=== PATIENT | female | born 1975 | race Caucasian/White ===

== ENCOUNTER 2020-11-14 09:54 | Outpatient (REF) | payer OTHER, SELFPAY | END 2020-11-14 09:55 | disposition home or self-care (01) | LOC: HO.LAB 09:54 | PROVIDERS: Visit Provider Internal Medicine | DX: Z20.828 Contact with and (suspected) exposure to other viral communicable diseases (principal) | CPT/HCPCS: C9803; U0003 ==

== ENCOUNTER 2021-07-22 08:15 | Outpatient (REF) | payer OTHER, SELFPAY | END 2021-07-22 08:16 | disposition home or self-care (01) | LOC: HO.HMGCLDS 08:15 | PROVIDERS: PCP Physician Assistant Medical; Visit Provider Internal Medicine | DX: Z20.822 Contact with and (suspected) exposure to COVID-19 (principal) | CPT/HCPCS: C9803; U0003; U0005 ==

== ENCOUNTER 2021-12-10 20:14 | Emergency (ER) | payer OTHER, SELFPAY ==
[2021-12-10 21:51] VITALS: BP 142/97; PULSE 107; RESP 20; TEMP 36.9; O2SAT 98; BMI 32.9
[2021-12-10 22:10] LABS: MANUAL DIFF FLAG NO
[2021-12-10 22:12] LABS: Basophils Absolute Auto 0.1 X10*3/uL (0.0-0.2); Basophils Percent Auto 0.5 % (0-2); Eosinophils Absolute Auto 0.4 X10*3/uL (0.0-0.4); Hemoglobin 14.4 g/dl (12.0-16.0); Imm Gran Abs Auto 0.03 X10*3/uL (0.00-0.03); Imm Gran Pct Auto 0.3 % (0.0-0.4); Lymphocytes Absolute Auto 3.1 X10*3/uL (1.2-4.9); Mean Corpuscular HGB Conc 34.3 g/dl (31.0-35.0); Mean Corpuscular Hemoglobin 30.8 pg (27.0-33.0); Mean Corpuscular Volume 89.9 fL (80.0-98.0); Mean Platelet Volume 10.9 fL (9.4-12.3); Monocytes Absolute Auto 0.8 X10*3/uL (0.1-1.2); Monocytes Percent Auto 8.5 % (2-11); Neutrophils Percent Auto 53.7 % (45-73); Platelet Count 245 X10*3/uL (160-400); Red Blood Count 4.67 X10*6/uL (4.20-5.50); Red Cell Distribution Width 12.1 % (11.0-16.0); White Blood Count 9.2 X10*3/uL (4.8-10.8)
[2021-12-10 22:26] LABS: COVID-19 Test Negative (Negative)
[2021-12-10 22:46] LABS: Alanine Aminotransferase 18 U/L (0-31); Albumin Level 3.8 g/dL (3.5-5.0); Alkaline Phosphatase 70 U/L (39-117); Anion Gap 9 (12-20); Aspartate Amino Transferase 15 U/L (5-31); Bilirubin Total 0.5 mg/dL (0.0-1.0); Blood Urea Nitrogen 11 mg/dL (9-16); Calcium 8.9 mg/dL (8.4-10.2); Carbon Dioxide 25 mmol/L (22-29); Chloride 110 mmol/L (96-108); Creatinine Clr Calc Pharmacy 121.1; Estimated Glomerular Filt Rate > 60; Glucose Random 104 mg/dL (60-115); Potassium 4.2 mmol/L (3.3-5.1); Sodium 140 mmol/L (135-145); Total Protein 7.1 g/dL (6.5-8.0)
[2021-12-11 05:06] VITALS: BP 125/88; PULSE 55; RESP 16; TEMP 36.7; O2SAT 97
--- NOTE | 2021-12-11 05:09 | ED_ITS ---
HPI - General Adult General Chief complaint: General Medical Stated complaint: vomiting,dehydration Time Seen by Provider: 12/11/21 05:09 Source: patient Mode of arrival: ambulatory Limitations: no limitations History of Present Illness HPI narrative: vomiting for the past 48 hours, mild fever 2 days ago Onset (ago): day(s) Radiation: non-radiation Severity: moderate Pain Consistency: intermittent Associated symptoms: fever/chills Related Data Previous Rx's Medication Instructions Recorded ondansetron 4 mg disintegrating 4 mg PO Q8H 4 Days #12 tab 12/11/21 tablet Allergies Allergy/AdvReac Type Severity Reaction Status Date / Time No Known Allergies Allergy Unverified 08/14/20 19:24 [No Known Allergies*] NKDA Allergy Unknown Uncoded 06/28/19 00:00 Review of Systems Constitutional: Constitutional: Reports no additional constitutional complaints Eyes: Eyes: Reports no additional eye complaints ENT: Denies dizziness Cardiovascular: Cardiovascular: Reports no additional cardiovascular complaints Respiratory: Respiratory: Reports as per HPI Gastrointestinal: Gastrointestinal: Reports no additional gastrointestinal complaints Genitourinary: Genitourinary: Reports no additional female genitourinary complaints Musculoskeletal: Musculoskeletal: Reports no additional musculoskeletal complaints Integumentary/Breasts: Skin/Breast: Denies rash Neurologic: Reports system reviewed and no additional complaints, except as documented, Denies dizziness and Denies Sensory deficit (Neuro) Psychiatric: Psychiatric: Denies anxiety [facility] Social History Social History Advance Directives: No Physical Exam Vital Signs: Vital Signs: Last Vital Signs Temp 98.1 F 12/11/21 05:06 Pulse 55 12/11/21 05:06 Resp 16 12/11/21 05:06 BP 125/88 12/11/21 05:06 Pulse Ox 97 12/11/21 05:06 BMI result Body Mass Index 32.9 Const: General: healthy appearing Nutritional Appearance: average body hab itus Orientation/consciousness: oriented to person and patient oriented x3 Limitations: no limitations HENMT: Head: Yes normal to inspection Ears: external ears normal General nose exam: Normal external nose present Mouth: Normal oral and palatal mucosa present and oropharynx normal Throat: Yes posterior oropharynx normal Eyes: General: appearance normal, both eyes and all related structures Neck: Other: supple Neck: Yes normal visual inspection Chest: Chest palpation & inspection: normal inspection of the chest Resp: Auscultation: clear to auscultation bilaterally Cardio: Jugular venous distension: no JVD Rate: regular rate Rhythm: regular rhythm Heart sounds: S1 normal heart sound present and S2 normal heart sound present GI: Inspection: Yes normal to inspection Palpation (GI): Soft to palpation, nontender and No hepatosplenomegaly present Auscultation: normal bowel sounds : General: Yes no CVA tenderness Back/Spine/Pelvis: Back: no CVA tenderness Skin: General skin exam: no rashes or lesions noted Neuro: General: oriented to person and patient oriented x3 Cranial nerves: Yes CN's II-XII intact bilaterally Motor exam (neuro): 5/5 motor strength present throughout Sensory Exam: No Sensory deficit (Neuro) Extrem: General: Yes normal to inspection Psych: Appearance: grossly normal Course Reevaluation(s) Reevaluation #1: patient tolerating PO will dc on zofran Time: 07:45 Medical Decision Making Lab Data Result diagrams: 12/10/21 22:06 12/10/21 22:06 Labs: Lab Results 12/10/21 12/10/21 12/10/21 Range/Units 22:06 22:06 22:06 WBC 9.2 (4.8-10.8) X10*3/uL RBC 4.67 (4.20-5.50) X10*6/uL Hgb 14.4 (12.0-16.0) g/dl Hct 42.0 (37.0-47.0) % MCV 89.9 (80.0-98.0) fL MCH 30.8 (27.0-33.0) pg MCHC 34.3 (31.0-35.0) g/dl RDW 12.1 (11.0-16.0) % Plt Count 245 (160-400) X10*3/uL MPV 10.9 (9.4-12.3) fL Immature Gran % (Auto) 0.3 (0.0-0.4) % Neut % (Auto) 53.7 (45-73) % Lymph % (Auto) 33.0 (20-40) % [place] % (Auto) 8.5 (2-11) % Eos % (Auto) 4.0 (0-4) % Baso % (Auto) 0.5 (0-2) % Lymph # (Auto) 3.1 (1.2-4.9) X10*3/uL [place] # (Auto) 0.8 (0.1-1.2) X10*3/uL Eos # (Auto) 0.4 (0.0-0.4) X10*3/uL Baso # (Auto) 0.1 (0.0-0.2) X10*3/uL Abs Immat Gran (auto) 0.03 (0.00-0.03) X10*3/uL Absolute Neuts (auto) 5.0 (2.0-8.3) x10*3/uL Absolute Nucleated RBC 0.000 (0.0-0.012) X10*3/uL Nucleated RBC % (auto) 0.0 (0.0-0.2) /100WBC Sodium 140 (135-145) mmol/L Potassium 4.2 (3.3-5.1) mmol/L Chloride 110 H (96-108) mmol/L Carbon Dioxide 25 (22-29) mmol/L Anion Gap 9 L (12-20) BUN 11 (9-16) mg/dL Creatinine 0.75 (0.5-1.4) mg/dL Estim Creat Clear Calc 121.1 Estimated GFR > 60 Random Glucose 104 (60-115) mg/dL Calcium 8.9 (8.4-10.2) mg/dL Total Bilirubin 0.5 (0.0-1.0) mg/dL AST 15 (5-31) U/L ALT 18 (0-31) U/L Alkaline Phosphatase 70 (39-117) U/L Total Protein 7.1 (6.5-8.0) g/dL Albumin 3.8 (3.5-5.0) g/dL Urine Color Urine Appearance Urine pH (5.0-8.0) Ur Specific [place] (1.005-1.025) Urine Protein (NEG-TRACE) MG/DL Urine Glucose (UA) (NEG) MG/DL Urine Ketones (NEG) MG/DL Urine Blood (NEG) Urine Nitrite (NEG) Ur Leukocyte Esterase (NEG) Urine RBC (0) /HPF Urine WBC (0-4) /HPF Urine WBC Clumps Ur Squamous Epith Cells /LPF Urine Bacteria /LPF Urine Mucus /LPF COVID-19 ([facility]) Negative (Negative) COVID-19 Clin Com See Note 12/11/21 Range/Units 07:07 WBC (4.8-10.8) X10*3/uL RBC (4.20-5.50) X10*6/uL Hgb (12.0-16.0) g/dl Hct (37.0-47.0) % MCV (80.0-98.0) fL MCH (27.0-33.0) pg MCHC (31.0-35.0) g/dl RDW (11.0-16.0) % Plt Count (160-400) X10*3/uL MPV (9.4-12.3) fL Immature Gran % (Auto) (0.0-0.4) % Neut % (Auto) (45-73) % Lymph % (Auto) (20-40) % [place] % (Auto) (2-11) % Eos % (Auto) (0-4) % Baso % (Auto) (0-2) % Lymph # (Auto) (1.2-4.9) X10*3/uL [place] # (Auto) (0.1-1.2) X10*3/uL Eos # (Auto) (0.0-0.4) X10*3/uL Baso # (Auto) (0.0-0.2) X10*3/uL Abs Immat Gran (auto) (0.00-0.03) X10*3/uL Absolute Neuts (auto) (2.0-8.3) x10*3/uL Absolute Nucleated RBC (0.0-0.012) X10*3/uL Nucleated RBC % (auto) (0.0-0.2) /100WBC Sodium (135-145) mmol/L Potassium (3.3-5.1) mmol/L Chloride (96-108) mmol/L Carbon Dioxide (22-29) mmol/L Anion Gap (12-20) BUN (9-16) mg/dL Creatinine (0.5-1.4) mg/dL Estim Creat Clear Calc Estimated GFR Random Glucose (60-115) mg/dL Calcium (8.4-10.2) mg/dL Total Bilirubin (0.0-1.0) mg/dL AST (5-31) U/L ALT (0-31) U/L Alkaline Phosphatase (39-117) U/L Total Protein (6.5-8.0) g/dL Albumin (3.5-5.0) g/dL Urine Color YELLOW Urine Appearance HAZY Urine pH 6.0 (5.0-8.0) Ur Specific [place] 1.025 (1.005-1.025) Urine Protein NEG (NEG-TRACE) MG/DL Urine Glucose (UA) NEG (NEG) MG/DL Urine Ketones 15 (NEG) MG/DL Urine Blood NEG (NEG) Urine Nitrite NEG (NEG) Ur Leukocyte Esterase 1+ H (NEG) Urine RBC 0 (0) /HPF Urine WBC 30-49 H (0-4) /HPF Urine WBC Clumps NOTED Ur Squamous Epith Cells 2+ /LPF Urine Bacteria 2+ /LPF Urine Mucus 2+ /LPF COVID-19 ([facility]) (Negative) COVID-19 Clin Com Discharge Plan Discharge Clinical Impression: Nausea & vomiting Qualifiers: Vomiting type: unspecified Qualified Code(s): R11.2 - Nausea with vomiting, unspecified Patient Disposition: Home, Self-Care Instructions: Acute Nausea and Vomiting (ED) Prescriptions: New ondansetron 4 mg tablet,disintegrating 4 mg PO Q8H 4 Days Qty: 12 RF: 0 Referrals: Benita Turner PA [Primary Care Provider] - 1 week
[2021-12-11] MEDS: 0.9 % Sodium Chloride 1,000 ML 999 ML IVCONT ×2 (05:37→05:41)
[2021-12-11] MEDS: Ketorolac Tromethamine 30 MG/ML VIAL 15 MG IVPUSH (05:37)
[2021-12-11] MEDS: ondansetron HCL 4 MG/2 ML VIAL IVPUSH (05:37)
[2021-12-11 07:24] LABS: Appearance Urine HAZY; Color Urine YELLOW; Glucose Urine UA NEG (NEG); Leukocyte Esterase Urine 1+ (NEG); Nitrite Urine NEG (NEG); Specific Gravity - Urine 1.025 (1.005-1.025); UACC Culture Trigger YES; Urine Blood NEG (NEG); Urine Ketones 15 MG/DL (NEG); Urine Protein NEG (NEG-TRACE)
--- NOTE | 2021-12-11 07:26 | PC.NURSE ---
REPORT TAKEN FROM SOILA DHALIWAL PT HERE FOR ABD PAIN, N/V FOR SEVERAL DAYS, REPORTED HTN D/T MISSING MEDS R/T POOR PO INTAKE. PT STS FEELING RELIEF FROM S/S FOLLOWING MEDS, FLUIDS COMPLETED, UA SPEC OBTAINED AND SENT. AWAITING DISPO. WCTM.
[2021-12-11 07:38] LABS: RBC Urine 0 /HPF (0); UACC CULT YES; WBC Urine 30-49 /HPF (0-4)
[2021-12-11 07:39] LABS: Bacteria Urine 2+ /LPF; Mucus Urine 2+ /LPF; Squamous Epithelial Cell Urine 2+ /LPF; WBC Clumps Urine NOTED
== END 2021-12-11 07:57 | disposition home or self-care (01) ==
PROVIDERS: Emergency Provider Emergency Medicine; PCP Physician Assistant Medical
DX: R11.2 Nausea with vomiting, unspecified (principal); E86.0 Dehydration; R50.9 Fever, unspecified; Z20.822 Contact with and (suspected) exposure to COVID-19; Z79.899 Other long term (current) drug therapy
CPT/HCPCS: 36415; 80053; 81001; 85025; 87086; 87635; 99284; J1885; J2405

== ENCOUNTER 2022-01-31 11:51 | Inpatient (IN) | payer OTHER, SELFPAY ==
[2022-01-31] VITALS (8 sets, daily range): BP systolic 105–167; BP diastolic 62–107; PULSE 68–101; RESP 16–20; TEMP 36.1–37.2; O2SAT 95–97; BMI 35.7
--- NOTE | ~2022-01-31 | CT_ITS ---
EXAMINATION: CT ABDOMEN AND PELVIS WITH CONTRAST CLINICAL INFORMATION: Right-sided lower abdominal pain. COMPARISON: CT abdomen/pelvis dated from 01/31/2022. TECHNIQUE: Multidetector volumetric images were obtained from the superior aspect of the liver through the pubic symphysis following administration 85 mL of Omnipaque 350 intravenous contrast. Sagittal and coronal reformatted images were obtained on the technologist's workstation. Oral contrast: No This CT examination was performed using dose optimization techniques as appropriate, variously including the following: *Automated exposure control *Adjustment of mA and/or kV according to patient size (this includes techniques or standardized protocols for targeted exams where dose is matched to indication/reason for exam; i.e. extremities or head) *Use of iterative reconstruction technique DLP: 896 mGy-cm FINDINGS: LUNG BASES: Mild subsegmental atelectasis. No focal consolidation or pleural effusion. LIVER, GALLBLADDER, AND BILIARY TREE: The liver is normal in size, shape, and attenuation. No focal hepatic lesion or biliary ductal dilatation is present. The gallbladder demonstrates vicarious excretion of contrast from a recent IV injection yesterday. There is no gallbladder wall thickening or pericholecystic inflammatory changes. PANCREAS: Unremarkable. SPLEEN: Unremarkable. ADRENAL GLANDS: Unremarkable. KIDNEYS AND URETERS: The kidneys are normal in size, shape, and attenuation. Redemonstration of a too small to characterize hypodensity in the lower pole of left kidney which statistically is likely to represent a simple cyst and does not require further follow-up. No hydronephrosis, hydroureter, or calculi seen. No perinephric stranding. BLADDER: Unremarkable. GASTROINTESTINAL TRACT: Redemonstration of wall thickening and inflammatory changes in the descending colon centered around several diverticuli, not significantly changed since yesterday. No evidence of drainable collection, abscess or perforation. The stomach and the small bowel are nondilated. The appendix is not definitely identified. No bowel obstruction. ABDOMINAL WALL: No significant hernia is appreciated. LYMPH NODES: No lymphadenopathy by size criteria. VASCULAR: Mild atherosclerotic disease. The abdominal aorta is of normal diameter. PELVIC VISCERA: A 1.9 cm water density cyst in the left ovary is redemonstrated and likely represents a dominant follicle. Trace amount of free fluid layering the pelvis is nonspecific and could be physiologic or reactive in the setting of diverticulitis. Prior hysterectomy. OSSEOUS STRUCTURES: No acute or aggressive appearing osseous abnormalities. CT/CT abdomen pelvis w con IMPRESSION: This study is not significantly changed since yesterday with redemonstration of acute diverticulitis in the descending colon. After resolution of the acute findings correlation with a colonoscopy is recommended to ensure the absence of underlying lesions.
--- NOTE | ~2022-01-31 | CT_ITS ---
EXAMINATION: CT ABDOMEN AND PELVIS WITH CONTRAST CLINICAL INFORMATION: Left lower quadrant pain COMPARISON: None TECHNIQUE: Multidetector volumetric images were obtained from the superior aspect of the liver through the pubic symphysis following administration 85 mL of Omnipaque 350 intravenous contrast. Sagittal and coronal reformatted images were obtained on the technologist's workstation. Oral contrast: No This CT examination was performed using dose optimization techniques as appropriate, variously including the following: *Automated exposure control *Adjustment of mA and/or kV according to patient size (this includes techniques or standardized protocols for targeted exams where dose is matched to indication/reason for exam; i.e. extremities or head) *Use of iterative reconstruction technique DLP: 930 mGy-cm FINDINGS: LUNG BASES: The visualized lung bases are unremarkable. LIVER, GALLBLADDER, AND BILIARY TREE: The liver is normal in size, shape, and attenuation. No focal hepatic lesion or biliary ductal dilatation is present. The gallbladder is unremarkable with no evidence of radiopaque gallstones, gallbladder wall thickening, or obvious pericholecystic inflammatory changes. PANCREAS: Unremarkable. SPLEEN: Unremarkable. ADRENAL GLANDS: Unremarkable. KIDNEYS AND URETERS: The kidneys are normal in size, shape, and attenuation. No hydronephrosis, hydroureter, or calculi seen. No perinephric stranding. BLADDER: Unremarkable. GASTROINTESTINAL TRACT: Diverticular changes are present in the colon. In the distal descending colon, there is an area of acute diverticulitis present with inflammatory changes in the colon as well as in the pericolonic fat with thickening of the lateral lateral conal fascia and anterior pararenal fascia. No extraluminal air or pericolonic fluid collections are seen. The small and large bowel are otherwise unremarkable. The appendix is not seen. ABDOMINAL WALL: No significant hernia is appreciated. LYMPH NODES: Normal. VASCULAR: Unremarkable. PELVIC VISCERA: Uterus does not appear to be present. An abnormal adnexal mass or free fluid is not seen. OSSEOUS STRUCTURES: Unremarkable. CT/CT abdomen pelvis w con IMPRESSION: Acute uncomplicated diverticulitis involving the distal descending colon. Fleischner guidelines were followed.
[2022-01-31 12:41] LABS: MANUAL DIFF FLAG NO
[2022-01-31 12:42] LABS: Appearance Urine HAZY; Basophils Absolute Auto 0.1 X10*3/uL (0.0-0.2); Basophils Percent Auto 0.5 % (0-2); Color Urine YELLOW; Eosinophils Absolute Auto 0.4 X10*3/uL (0.0-0.4); Eosinophils Percent Auto 3.2 % (0-4); Glucose Urine UA NEG (NEG); Hematocrit 38.1 % (37.0-47.0); Hemoglobin 13.2 g/dl (12.0-16.0); Imm Gran Abs Auto 0.04 X10*3/uL (0.00-0.03); Imm Gran Pct Auto 0.3 % (0.0-0.4); Leukocyte Esterase Urine TRACE (NEG); Lymphocytes Absolute Auto 2.6 X10*3/uL (1.2-4.9); Lymphocytes Percent Auto 20.1 % (20-40); Mean Corpuscular HGB Conc 34.6 g/dl (31.0-35.0); Mean Corpuscular Hemoglobin 31.3 pg (27.0-33.0); Mean Corpuscular Volume 90.3 fL (80.0-98.0); Mean Platelet Volume 10.5 fL (9.4-12.3); Neutrophils Absolute Auto 8.7 x10*3/uL (2.0-8.3); Neutrophils Percent Auto 67.9 % (45-73); Nitrite Urine NEG (NEG); Platelet Count 227 X10*3/uL (160-400); Red Blood Count 4.22 X10*6/uL (4.20-5.50); Red Cell Distribution Width 12.1 % (11.0-16.0); UACC Culture Trigger YES; Urine Blood NEG (NEG); Urine Ketones NEG (NEG); Urine Protein NEG (NEG-TRACE); White Blood Count 12.8 X10*3/uL (4.8-10.8)
[2022-01-31] MEDS: 0.9 % Sodium Chloride 1,000 ML 999 ML IV (12:45)
[2022-01-31] MEDS: ondansetron HCL 4 MG/2 ML VIAL IVPUSH (12:45)
[2022-01-31 12:46] LABS: UPreg QC Valid YES; Urine Pregnancy NEGATIVE (NEGATIVE)
[2022-01-31] MEDS: Morphine Sulfate 2 MG/ML CARTRIDGE IVPUSH ×2 (12:46→17:10)
[2022-01-31] MEDS: lisinopriL 5 MG TABLET PO (12:46)
[2022-01-31 12:56] LABS: Bacteria Urine 2+ /LPF; Squamous Epithelial Cell Urine 2+ /LPF
[2022-01-31 12:57] LABS: RBC Urine 0 /HPF (0)
--- NOTE | 2022-01-31 13:10 | ED_ITS ---
HPI - Abdominal Pain General Chief Complaint: Abdominal Pain Stated Complaint: ABD PAIN Time Seen by Provider: 01/31/22 12:18 Source: patient Mode of arrival: ambulatory History of Present Illness HPI narrative: 46-year-old female with past medical history of hypertension, ovarian cysts, s/p hysterectomy and appendectomy, presenting to the ED complaining of left lower quadrant abdominal pain x3 days with associated nausea. Pain is nonradiating. Denies fever, chills, vomiting, diarrhea, dysuria/hematuria, vaginal bleeding/discharge MD elicited complaint: abdominal pain Onset (ago): day(s) Related Data Home Medications Medication Instructions Recorded Confirmed bupropion HCl 150 mg 24 hr tablet, 1 tab PO DAILY 01/31/22 01/31/22 extended release lisinopril 5 mg tablet 1 tab PO DAILY 01/31/22 01/31/22 meloxicam 15 mg tablet 1 tab PO DAILY 01/31/22 01/31/22 sertraline 100 mg tablet 1 tab PO DAILY 01/31/22 01/31/22 Allergies Allergy/AdvReac Type Severity Reaction Status Date / Time No Known Allergies Allergy Verified 01/31/22 11:59 [No Known Allergies*] Review of Systems Review of Systems Constitutional: No Fever, No Chills, No Night Sweats, No Fatigue, No Malaise ENT/Mouth: No Ear Pain, No Nasal Congestion, No Swallowing Difficulty Eyes: No Eye Pain, No Swelling, No Redness, No Discharge Cardiovascular: No Chest Pain, No SOB, No Dyspnea on Exertion, No Orthopnea, No Edema, No Palpitations Respiratory: No Cough, No Sputum, No Dyspnea Gastrointestinal: + Nausea, No Vomiting, No Diarrhea, No Constipation, + Abdominal pain Genitourinary: No irregular bleeding, No Dysuria, No Urinary Frequency, No Hematuria, No Urinary Incontinence, No Urgency, No Flank Pain, No Urinary Flow Changes Musculoskeletal: No joint pain, No Myalgias, No Joint Swelling Skin: No Skin Lesions, No rash Neuro: No Weakness, No Numbness, No Dizziness, No Headache Yes all other systems are reviewed and are negative [facility] Past Medical History Attestation statement: The following information was validated with the patient. Medical History HTN (hypertension) Mood disorder Ovarian cyst Surgical History History of partial hysterectomy Family History Family History (Updated 01/31/22 @ 15:52 by Toni Rivera MD) Father Diverticulitis Social History Social History Alcohol intake: never Patient Tobacco Use Status: Never used Tobacco Use of substances other than those prescribed or required for medical reasons: No Advance Directives: No Advance Directives Information Provided: No Patient : No Physical Exam ED Vital Signs: Vital Signs - 24 hr 01/31/22 11:55 01/31/22 12:00 01/31/22 12:46 Temperature 99 F 98.2 F Pulse Rate 101 H 87 Respiratory Rate 20 16 16 Blood Pressure 150/107 H 143/91 H Pulse Oximetry 97 97 01/31/22 13:04 01/31/22 13:18 01/31/22 14:25 Temperature 98.0 F Pulse Rate 85 82 82 Respiratory Rate 18 16 18 Blood Pressure 140/94 H 122/84 105/62 Pulse Oximetry 96 97 95 BMI result Body Mass Index 35.7 Const Other: in pain General: cooperative and healthy appearing Orientation/consciousness: patient oriented x3 Limitations: no limitations HENMT Head: Yes normal to inspection Ears: hearing grossly normal bilaterally General nose exam: Normal external nose present Face and sinus: Yes normal facial exam Eyes General: appearance normal, both eyes and all related structures EOM: EOMs intact bilaterally Neck Neck: Yes normal visual inspection and Yes no meningeal signs Resp Effort & Inspection: normal respiratory effort and no respiratory distress Auscultation: clear to auscultation bilaterally Cardio Rate: regular rate Heart sounds: S1 normal heart sound present and S2 normal heart sound present GI Inspection: Yes normal to inspection Palpation (GI): Soft to palpation, Tenderness to palpation present (GI) in the LLQ, Guarding due to palpation present (GI) in the LLQ and not rigid General: Yes no CVA tenderness Back/Spine/Pelvis Back: no CVA tenderness Skin Rashes: no rashes Wounds: no wounds Neuro General: patient oriented x3 and no meningeal signs Gait exam (Neuro): Normal gait present Extrem General: Yes normal to inspection Course Course Course Narrative: -1452--mild leukocytosis of 12.8. Lipase mildly elevated to 81, labs otherwise unremarkable. > patient does not meet severe sepsis criteria -UA not infected. CT abdomen pelvis w con IMPRESSION: Acute uncomplicated diverticulitis involving the distal descending colon.? Fleischner guidelines were followed. >> on re-evaluation patient still reports significant amount of pain. Discussed results. Will attempt p.o. challenge -1524--patient failed p.o. challenge. Will give IV Levaquin and Flagyl as well as additional pain management. Plan for admission MDM - Abdominal Pain MDM Narrative Medical decision making narrative: 46-year-old female with past medical history of hypertension, ovarian cysts, s/p hysterectomy and appendectomy, presenting to the ED complaining of left lower quadrant abdominal pain x3 days with associated nausea. On exam initially hypertensive denies taking Lisinopril today, tachycardic likely from pain, abdomen soft with LLQ tenderness and guarding, no rebound. No CVA tenderness. Concern for diverticulitis vs ? Renal stone. Unlikely pyelo/cholecystitis/cholelithiasis or pancreatitis. Low concern for severe sepsis at this time Plan: Labs, UA, CT abdomen/pelvis, IVF, pain management Differential Diagnosis Differential diagnosis: Likely abdominal pain, constipation and diverticulitis Medical Records Attestation: I reviewed the patient's medical records. Lab Data Attestation: I reviewed the patient's lab results. Result diagrams: 01/31/22 12:35 01/31/22 12:35 Labs: Lab Results 01/31/22 01/31/22 01/31/22 Range/Units 12:35 12:35 12:35 WBC 12.8 H (4.8-10.8) X10*3/uL RBC 4.22 (4.20-5.50) X10*6/uL Hgb 13.2 (12.0-16.0) g/dl Hct 38.1 (37.0-47.0) % MCV 90.3 (80.0-98.0) fL MCH 31.3 (27.0-33.0) pg MCHC 34.6 (31.0-35.0) g/dl RDW 12.1 (11.0-16.0) % Plt Count 227 (160-400) X10*3/uL MPV 10.5 (9.4-12.3) fL Immature Gran % (Auto) 0.3 (0.0-0.4) % Neut % (Auto) 67.9 (45-73) % Lymph % (Auto) 20.1 (20-40) % [place] % (Auto) 8.0 (2-11) % Eos % (Auto) 3.2 (0-4) % Baso % (Auto) 0.5 (0-2) % Lymph # (Auto) 2.6 (1.2-4.9) X10*3/uL [place] # (Auto) 1.0 (0.1-1.2) X10*3/uL Eos # (Auto) 0.4 (0.0-0.4) X10*3/uL Baso # (Auto) 0.1 (0.0-0.2) X10*3/uL Abs Immat Gran (auto) 0.04 H (0.00-0.03) X10*3/uL Absolute Neuts (auto) 8.7 H (2.0-8.3) x10*3/uL Absolute Nucleated RBC 0.000 (0.0-0.012) X10*3/uL Nucleated RBC % (auto) 0.0 (0.0-0.2) /100WBC Sodium 139 (135-145) mmol/L Potassium 4.2 (3.3-5.1) mmol/L Chloride 107 (96-108) mmol/L Carbon Dioxide 25 (22-29) mmol/L Anion Gap 11 L (12-20) BUN 10 (9-16) mg/dL Creatinine 0.64 (0.5-1.4) mg/dL Estim Creat Clear Calc 143.4 Estimated GFR > 60 Random Glucose 94 (60-115) mg/dL Calcium 8.9 (8.4-10.2) mg/dL Magnesium 1.9 (1.6-2.6) mg/dL Total Bilirubin 0.6 (0.0-1.0) mg/dL Direct Bilirubin 0.3 (0.0-0.5) mg/dL AST 15 (5-31) U/L ALT 18 (0-31) U/L Alkaline Phosphatase 89 D (39-117) U/L Total Protein 6.7 (6.5-8.0) g/dL Albumin 3.8 (3.5-5.0) g/dL Lipase 81 H (8-78) U/L Urine Color YELLOW Urine Appearance HAZY Urine pH 6.0 (5.0-8.0) Ur Specific [place] 1.020 (1.005-1.025) Urine Protein NEG (NEG-TRACE) MG/DL Urine Glucose (UA) NEG (NEG) MG/DL Urine Ketones NEG (NEG) MG/DL Urine Blood NEG (NEG) Urine Nitrite NEG (NEG) Ur Leukocyte Esterase TRACE H (NEG) Urine RBC 0 (0) /HPF Urine WBC 1-4 (0-4) /HPF Ur Squamous Epith Cells 2+ /LPF Urine Bacteria 2+ /LPF Urine Test (NEGATIVE) 01/31/22 Range/Units 12:36 WBC (4.8-10.8) X10*3/uL RBC (4.20-5.50) X10*6/uL Hgb (12.0-16.0) g/dl Hct (37.0-47.0) % MCV (80.0-98.0) fL MCH (27.0-33.0) pg MCHC (31.0-35.0) g/dl RDW (11.0-16.0) % Plt Count (160-400) X10*3/uL MPV (9.4-12.3) fL Immature Gran % (Auto) (0.0-0.4) % Neut % (Auto) (45-73) % Lymph % (Auto) (20-40) % [place] % (Auto) (2-11) % Eos % (Auto) (0-4) % Baso % (Auto) (0-2) % Lymph # (Auto) (1.2-4.9) X10*3/uL [place] # (Auto) (0.1-1.2) X10*3/uL Eos # (Auto) (0.0-0.4) X10*3/uL Baso # (Auto) (0.0-0.2) X10*3/uL Abs Immat Gran (auto) (0.00-0.03) X10*3/uL Absolute Neuts (auto) (2.0-8.3) x10*3/uL Absolute Nucleated RBC (0.0-0.012) X10*3/uL Nucleated RBC % (auto) (0.0-0.2) /100WBC Sodium (135-145) mmol/L Potassium (3.3-5.1) mmol/L Chloride (96-108) mmol/L Carbon Dioxide (22-29) mmol/L Anion Gap (12-20) BUN (9-16) mg/dL Creatinine (0.5-1.4) mg/dL Estim Creat Clear Calc Estimated GFR Random Glucose (60-115) mg/dL Calcium (8.4-10.2) mg/dL Magnesium (1.6-2.6) mg/dL Total Bilirubin (0.0-1.0) mg/dL Direct Bilirubin (0.0-0.5) mg/dL AST (5-31) U/L ALT (0-31) U/L Alkaline Phosphatase (39-117) U/L Total Protein (6.5-8.0) g/dL Albumin (3.5-5.0) g/dL Lipase (8-78) U/L Urine Color Urine Appearance Urine pH (5.0-8.0) Ur Specific [place] (1.005-1.025) Urine Protein (NEG-TRACE) MG/DL Urine Glucose (UA) (NEG) MG/DL Urine Ketones (NEG) MG/DL Urine Blood (NEG) Urine Nitrite (NEG) Ur Leukocyte Esterase (NEG) Urine RBC (0) /HPF Urine WBC (0-4) /HPF Ur Squamous Epith Cells /LPF Urine Bacteria /LPF Urine Test NEGATIVE (NEGATIVE) Discharge Plan Discharge Clinical Impression: Diverticulitis Patient Disposition: Admitted As Inpatient
[2022-01-31 13:14] LABS: Alanine Aminotransferase 18 U/L (0-31); Albumin Level 3.8 g/dL (3.5-5.0); Alkaline Phosphatase 89 U/L (39-117); Anion Gap 11 (12-20); Aspartate Amino Transferase 15 U/L (5-31); Bilirubin Direct 0.3 mg/dL (0.0-0.5); Bilirubin Total 0.6 mg/dL (0.0-1.0); Blood Urea Nitrogen 10 mg/dL (9-16); Calcium 8.9 mg/dL (8.4-10.2); Carbon Dioxide 25 mmol/L (22-29); Chloride 107 mmol/L (96-108); Creatinine Clr Calc Pharmacy 143.4; Estimated Glomerular Filt Rate > 60; Glucose Random 94 mg/dL (60-115); Lipase 81 U/L (8-78); Magnesium 1.9 mg/dL (1.6-2.6); Potassium 4.2 mmol/L (3.3-5.1); Sodium 139 mmol/L (135-145); Total Protein 6.7 g/dL (6.5-8.0)
[2022-01-31] MEDS: iohexoL 350 MG/ML 100 ML INFUS..BTL 85 ML IV (13:45)
[2022-01-31] MEDS: iohexoL 350 MG/ML 100 ML INFUS..BTL IV (13:55)
[2022-01-31] MEDS: Ketorolac Tromethamine 15 MG/ML VIAL IVPUSH ×2 (14:30→15:31)
[2022-01-31] MEDS: levoFLOXacin/D5W 750 MG/150 ML PIGGYBACK 100 MG IV (15:32)
[2022-01-31] MEDS: metroNIDAZOLE/NS 500 MG/100 ML PIGGYBACK 100 MG IV ×2 (15:32→21:29)
--- NOTE | 2022-01-31 15:51 | PM.IMHP ---
History of Present Illness Date of Service: 01/31/22 Chief Complaint: Abdominal pain 46-year-old female presented with 2 days of left lower quadrant abdominal pain. Pain is sharp, 10/10, worse on movement, improved by lying still and by opiates, associated with inability to tolerate p.o. Patient tried taking NSAIDs for pain, but pain did not improve so she came to the ED today. In ED CT abdomen showed left-sided diverticulitis, No abscess or free air. patient denies fever, chills, shortness of breath, chest pain. Review of Systems Review of Systems: Constitutional: Denies fever, denies Chills Eyes: denies blurry vision ENT: denies sore throat CVS: denies chest pain Respiratory: Denies dyspnea GI: abdominal pain : denies dysuria MSK: denies neck pain Skin: denies rash Neuro: denies specific motor weakness Psych: denies suicidal ideation Endocrine: denies heat/cold intolerance Hematologic: denies easy bleeding Allergy: denies hives [facility] Medical History HTN (hypertension) Mood disorder Ovarian cyst Family History (Updated 01/31/22 @ 15:52 by Toni Rivera MD) Father Diverticulitis Surgical History History of partial hysterectomy Social History Alcohol intake: never Patient Tobacco Use Status: Never used Tobacco Use of substances other than those prescribed or required for medical reasons: No Advance Directives: No Advance Directives Information Provided: No Patient : No Meds Allergies Allergy/AdvReac Type Severity Reaction Status Date / Time No Known Allergies Allergy Verified 01/31/22 11:59 [No Known Allergies*] Active Medications: Current Medications Bupropion HCl (Bupropion Hcl Xl 150 Mg Tab.Er.24h) 150 mg PO DAILY RAMIRO Enoxaparin Sodium (Enoxaparin Sodium 40 Mg/0.4 Ml Syringe) 40 mg SUBCUT DAILY RAMIRO Levofloxacin (Levaquin) 750 mg in 150 mls @ 100 mls/hr IV ONCE ONE Stop: 01/31/22 16:53 Last Admin: 01/31/22 15:32 Dose: 100 mls/hr Documented by: Metronidazole (Flagyl) 500 mg in 100 mls @ 100 mls/hr IV ONCE ONE Stop: 01/31/22 16:23 Last Admin: 01/31/22 15:32 Dose: 100 mls/hr Documented by: Levofloxacin (Levaquin) 750 mg in 150 mls @ 100 mls/hr IV Q24H RAMIRO Metronidazole (Flagyl) 500 mg in 100 mls @ 100 mls/hr IV Q8H RAMIRO Lactated Ringer's (Lr) 1,000 mls @ 80 mls/hr IVCONT .[id number] RAMIRO Lisinopril (Lisinopril 5 Mg Tablet) 5 mg PO DAILY RAMIRO; Protocol Morphine Sulfate (Morphine Sulfate 2 Mg/Ml Cartridge) 2 mg IVPUSH Q3H PRN; Protocol PRN Reason: moderate pain Pharmacy Consult (Consult Rx Perform Med Rec) 1 each MISCELLANE ONCE PRN PRN Reason: Consult order Sertraline HCl (Sertraline Hcl 100 Mg Tablet) 100 mg PO DAILY [facility] Sodium Chloride (0.9 % Sodium Chloride Flush 3 Ml Syringe) 3 ml IVFLUSH QSHIFT [facility] Home Medications Medication Instructions Recorded Confirmed Last Taken Type albuterol sulfate 90 mcg/actuation 2 puff INHALATION Q4H PRN 01/31/22 Unknown History aerosol inhaler bupropion HCl 150 mg 24 hr tablet, 1 tab PO DAILY 01/31/22 Unknown History extended release lisinopril 5 mg tablet 1 tab PO DAILY 01/31/22 Unknown History meloxicam 15 mg tablet 1 tab PO DAILY 01/31/22 Unknown History sertraline 100 mg tablet 1 tab PO DAILY 01/31/22 Unknown History Physical Exam Vital Signs and Narrative: Vital Signs: Last Vital Signs Temp 98.0 F 01/31/22 14:25 Pulse 82 01/31/22 14:25 Resp 18 01/31/22 14:25 BP 105/62 01/31/22 14:25 Pulse Ox 95 01/31/22 14:25 BMI result Body Mass Index 35.7 General: In some discomfort HEENT: atraumatic Neck: normal to visual inspection CVS: S1, S2, RRR Resp: CTA bilateral Chest: non tender GI: soft, left lower quadrant tender, non distended : no CVA tenderness Skin: no rashes Extremities: no edema Neuro: Oriented X3, grossly intact Psych: cooperative Results Labs CBC and Chem 7: 01/31/22 12:35 01/31/22 12:35 Labs: Laboratory Results - last 24 hr 01/31/22 01/31/22 01/31/22 12:35 12:35 12:35 MCV 90.3 MCH 31.3 MCHC 34.6 RDW 12.1 Plt Count 227 MPV 10.5 Immature Gran % (Auto) 0.3 Neut % (Auto) 67.9 Lymph % (Auto) 20.1 [place] % (Auto) 8.0 Eos % (Auto) 3.2 Baso % (Auto) 0.5 Lymph # (Auto) 2.6 [place] # (Auto) 1.0 Eos # (Auto) 0.4 Baso # (Auto) 0.1 Abs Immat Gran (auto) 0.04 H Absolute Neuts (auto) 8.7 H Absolute Nucleated RBC 0.000 Nucleated RBC % (auto) 0.0 Anion Gap 11 L Estim Creat Clear Calc 143.4 Estimated GFR > 60 Random Glucose 94 Calcium 8.9 Magnesium 1.9 Total Bilirubin 0.6 Direct Bilirubin 0.3 AST 15 ALT 18 Alkaline Phosphatase 89 D Total Protein 6.7 Albumin 3.8 Lipase 81 H Urine Color YELLOW Urine Appearance HAZY Urine pH 6.0 Ur Specific [place] 1.020 Urine Protein NEG Urine Glucose (UA) NEG Urine Ketones NEG Urine Blood NEG Urine Nitrite NEG Ur Leukocyte Esterase TRACE H Urine RBC 0 Urine WBC 1-4 Ur Squamous Epith Cells 2+ Urine Bacteria 2+ Urine Test 01/31/22 12:36 MCV MCH MCHC RDW Plt Count MPV Immature Gran % (Auto) Neut % (Auto) Lymph % (Auto) [place] % (Auto) Eos % (Auto) Baso % (Auto) Lymph # (Auto) [place] # (Auto) Eos # (Auto) Baso # (Auto) Abs Immat Gran (auto) Absolute Neuts (auto) Absolute Nucleated RBC Nucleated RBC % (auto) Anion Gap Estim Creat Clear Calc Estimated GFR Random Glucose Calcium Magnesium Total Bilirubin Direct Bilirubin AST ALT Alkaline Phosphatase Total Protein Albumin Lipase Urine Color Urine Appearance Urine pH Ur Specific [place] Urine Protein Urine Glucose (UA) Urine Ketones Urine Blood Urine Nitrite Ur Leukocyte Esterase Urine RBC Urine WBC Ur Squamous Epith Cells Urine Bacteria Urine Test NEGATIVE Imaging Radiologist's Impressions: Impressions Abdomen/Pelvis CT 01/31/22 13:54 IMPRESSION: Acute uncomplicated diverticulitis involving the distal descending colon. Fleischner guidelines were followed. Assessment and Plan (1) Mood disorder: Status: Acute Plan 46F prsented with abdominal pain acute diverticulitis clears iv fluids pain control levaquin, flagyl no sepsis, tachycardia from pain mood disorder zoloft, wellbutrin htn lisinopril monitor bp dvt prophylaxis - lvoenox full code Quality Stroke Does the patient have a stroke diagnosis?: No VTE Prior VTE?: No VTE Risk Level:: Medical - moderate - high VTE Device Contraindication: Treatment Not Indicated VTE Drug Contraindication: N/A - Med Ordered
[2022-01-31] MEDS: Lactated Ringers 1,000 ML 80 ML IVCONT (17:04)
[2022-01-31] MEDS: 0.9 % Sodium Chloride Flush 3 ML SYRINGE IVFLUSH (17:05)
[2022-01-31 18:03] LABS: COVID-19 Test Negative (Negative); IDNOW Serial# 16C4AD1C
[2022-01-31] MEDS: HYDROmorphone HCl 1 MG/ML SYRINGE 0.5 MG IVPUSH (19:55)
[2022-02-01] VITALS (10 sets, daily range): BP systolic 106–132; BP diastolic 62–83; PULSE 74–86; RESP 15–18; TEMP 36–37.2; O2SAT 93–96
[2022-02-01] MEDS: Lactated Ringers 1,000 ML 80 ML IVCONT ×2 (05:16→18:03)
[2022-02-01 06:05] LABS: Hematocrit 36.6 % (37.0-47.0); Hemoglobin 12.5 g/dl (12.0-16.0); Mean Corpuscular HGB Conc 34.2 g/dl (31.0-35.0); Mean Corpuscular Hemoglobin 31.2 pg (27.0-33.0); Mean Corpuscular Volume 91.3 fL (80.0-98.0); Mean Platelet Volume 10.9 fL (9.4-12.3); Platelet Count 204 X10*3/uL (160-400); Red Blood Count 4.01 X10*6/uL (4.20-5.50); Red Cell Distribution Width 12.2 % (11.0-16.0)
[2022-02-01] MEDS: HYDROmorphone HCl 1 MG/ML SYRINGE 0.5 MG IVPUSH ×5 (06:14→21:23)
[2022-02-01] MEDS: metroNIDAZOLE/NS 500 MG/100 ML PIGGYBACK 100 MG IV ×3 (06:15→20:48)
[2022-02-01 06:42] LABS: Anion Gap 9 (12-20); Blood Urea Nitrogen 7 mg/dL (9-16); Calcium 8.2 mg/dL (8.4-10.2); Carbon Dioxide 24 mmol/L (22-29); Chloride 108 mmol/L (96-108); Creatinine Clr Calc Pharmacy 145.6; Estimated Glomerular Filt Rate > 60; Glucose Fasting 93 mg/dL (60-99); Potassium 4.3 mmol/L (3.3-5.1); Sodium 137 mmol/L (135-145)
[2022-02-01] MEDS: buPROPion HCl XL 150 MG TAB.ER.24H PO (07:28)
[2022-02-01] MEDS: Sertraline HCL 100 MG TABLET PO (07:28)
[2022-02-01] MEDS: lisinopriL 5 MG TABLET PO (07:28)
[2022-02-01] MEDS: Enoxaparin Sodium 40 MG/0.4 ML SYRINGE SUBCUT (07:28)
[2022-02-01] MEDS: ondansetron HCL 4 MG/2 ML VIAL IVPUSH (07:31)
--- NOTE | 2022-02-01 08:50 | P.PNIM_ITS ---
Subjective Subjective Date of Service: 02/01/22 Interval History: cc: abd pain interval history:unchanged, not tolerating clears Cardiovascular Cardiovascular: Reports no additional cardiovascular complaints Respiratory Respiratory: Reports no additional respiratory complaints Physical Exam Vital Signs: Vital Signs: Last Vital Signs Temp 97.8 F 02/01/22 07:06 Pulse 81 02/01/22 07:06 Resp 18 02/01/22 07:06 BP 121/74 02/01/22 07:06 Pulse Ox 94 02/01/22 07:06 BMI result Body Mass Index 35.7 General: AO X 3, uncomfortable appearing Resp: CTA bilateral, no accessory muscles used CVS: S1,S2,RRR GI: soft, LLQ tender, non distended Neuro: motor grossly intact, alert Psych: appropriate affect, appropriate insight Objective Data Active Medications Bupropion HCl (Bupropion Hcl Xl 150 Mg Tab.Er.24h) 150 mg PO DAILY [facility] Last Admin: 02/01/22 07:28 Dose: 150 mg Documented by: HÉCTOR Enoxaparin Sodium (Enoxaparin Sodium 40 Mg/0.4 Ml Syringe) 40 mg SUBCUT DAILY [facility] Last Admin: 02/01/22 07:28 Dose: 40 mg Documented by: HÉCTOR Hydromorphone HCl (Hydromorphone Hcl 1 Mg/Ml Syringe) 0.5 mg IVPUSH Q3H PRN; Protocol PRN Reason: Pain, Moderate (Pain Scale 4-6 Last Admin: 02/01/22 06:14 Dose: 0.5 mg Documented by: GUSTABO Levofloxacin (Levaquin) 750 mg in 150 mls @ 100 mls/hr IV Q24H [facility] Metronidazole (Flagyl) 500 mg in 100 mls @ 100 mls/hr IV Q8H [facility] Last Infusion: 02/01/22 07:27 Dose: 0 mls/hr Documented by: HÉCTOR Lactated Ringer's (Lr) 1,000 mls @ 80 mls/hr IVCONT .[id number] [facility] Last Admin: 02/01/22 05:16 Dose: 80 mls/hr Documented by: GUSTABO Lisinopril (Lisinopril 5 Mg Tablet) 5 mg PO DAILY [facility]; Protocol Last Admin: 02/01/22 07:28 Dose: 5 mg Documented by: HÉCTOR Ondansetron HCl (Ondansetron Hcl 4 Mg/2 Ml Vial) 4 mg IVPUSH Q8H PRN PRN Reason: Nausea Last Admin: 02/01/22 07:31 Dose: 4 mg Documented by: HÉCTOR Pharmacy Consult (Consult Rx Perform Med Rec) 1 each MISCELLANE ONCE PRN PRN Reason: Consult order Sertraline HCl (Sertraline Hcl 100 Mg Tablet) 100 mg PO DAILY [facility] Last Admin: 02/01/22 07:28 Dose: 100 mg Documented by: HÉCTOR Sodium Chloride (0.9 % Sodium Chloride Flush 3 Ml Syringe) 3 ml IVFLUSH QSHIFT [facility] Last Admin: 02/01/22 07:07 Dose: Not Given Documented by: HÉCTOR Non-Admin Reason: IV Running Labs CBC & Chem 7: 02/01/22 05:24 02/01/22 05:24 Labs: Laboratory Results - last 24 hr 01/31/22 01/31/22 01/31/22 12:35 12:35 12:35 MCV 90.3 MCH 31.3 MCHC 34.6 RDW 12.1 Plt Count 227 MPV 10.5 Immature Gran % (Auto) 0.3 Neut % (Auto) 67.9 Lymph % (Auto) 20.1 [place] % (Auto) 8.0 Eos % (Auto) 3.2 Baso % (Auto) 0.5 Lymph # (Auto) 2.6 [place] # (Auto) 1.0 Eos # (Auto) 0.4 Baso # (Auto) 0.1 Abs Immat Gran (auto) 0.04 H Absolute Neuts (auto) 8.7 H Absolute Nucleated RBC 0.000 Nucleated RBC % (auto) 0.0 Anion Gap 11 L Estim Creat Clear Calc 143.4 Estimated GFR > 60 Random Glucose 94 Fasting Glucose Calcium 8.9 Magnesium 1.9 Total Bilirubin 0.6 Direct Bilirubin 0.3 AST 15 ALT 18 Alkaline Phosphatase 89 D Total Protein 6.7 Albumin 3.8 Lipase 81 H Urine Color YELLOW Urine Appearance HAZY Urine pH 6.0 Ur Specific [place] 1.020 Urine Protein NEG Urine Glucose (UA) NEG Urine Ketones NEG Urine Blood NEG Urine Nitrite NEG Ur Leukocyte Esterase TRACE H Urine RBC 0 Urine WBC 1-4 Ur Squamous Epith Cells 2+ Urine Bacteria 2+ Urine Test COVID-19 ([facility]) COVID-19 Clin Com 03/06/22 03/06/22 03/07/22 12:36 17:37 05:24 MCV 91.3 MCH 31.2 MCHC 34.2 RDW 12.2 Plt Count 204 MPV 10.9 Immature Gran % (Auto) Neut % (Auto) Lymph % (Auto) [place] % (Auto) Eos % (Auto) Baso % (Auto) Lymph # (Auto) [place] # (Auto) Eos # (Auto) Baso # (Auto) Abs Immat Gran (auto) Absolute Neuts (auto) Absolute Nucleated RBC 0.000 Nucleated RBC % (auto) 0.0 Anion Gap Estim Creat Clear Calc Estimated GFR Random Glucose Fasting Glucose Calcium Magnesium Total Bilirubin Direct Bilirubin AST ALT Alkaline Phosphatase Total Protein Albumin Lipase Urine Color Urine Appearance Urine pH Ur Specific [place] Urine Protein Urine Glucose (UA) Urine Ketones Urine Blood Urine Nitrite Ur Leukocyte Esterase Urine RBC Urine WBC Ur Squamous Epith Cells Urine Bacteria Urine Test NEGATIVE COVID-19 ([facility]) Negative COVID-19 Clin Com See Note 02/01/22 05:24 MCV MCH MCHC RDW Plt Count MPV Immature Gran % (Auto) Neut % (Auto) Lymph % (Auto) [place] % (Auto) Eos % (Auto) Baso % (Auto) Lymph # (Auto) [place] # (Auto) Eos # (Auto) Baso # (Auto) Abs Immat Gran (auto) Absolute Neuts (auto) Absolute Nucleated RBC Nucleated RBC % (auto) Anion Gap 9 L Estim Creat Clear Calc 145.6 Estimated GFR > 60 Random Glucose Fasting Glucose 93 Calcium 8.2 L D Magnesium Total Bilirubin Direct Bilirubin AST ALT Alkaline Phosphatase Total Protein Albumin Lipase Urine Color Urine Appearance Urine pH Ur Specific [place] Urine Protein Urine Glucose (UA) Urine Ketones Urine Blood Urine Nitrite Ur Leukocyte Esterase Urine RBC Urine WBC Ur Squamous Epith Cells Urine Bacteria Urine Test COVID-19 ([facility]) COVID-19 Clin Com Assessment and Plan (1) Diverticulitis: Status: Acute Plan 46F prsented with abdominal pain acute diverticulitis still with pain, no appetite, but not worse than yesterday continue clears, iv fluids, pain control levaquin, flagyl no sepsis, tachycardia from pain mood disorder zoloft, wellbutrin htn lisinopril monitor bp dvt prophylaxis - lovenox full code reason for continued hospitalization: inability to tolerate po, requiring iv pain meds. Quality Stroke Does the patient have a stroke diagnosis?: No VTE Prior VTE?: No VTE Risk Level:: Medical - moderate - high VTE Device Contraindication: Treatment Not Indicated VTE Drug Contraindication: N/A - Med Ordered
[2022-02-01] MEDS: Metoclopramide HCl 10 MG/2 ML VIAL 5 MG IVPUSH ×2 (09:50→23:36)
--- NOTE | 2022-02-01 09:58 | MHC.CM.PN ---
NURSE MEDIA LIBRARIAN NOTE ELECTRONIC MEDICAL RECORD REVIEWED CLAUDETTE\G WITH MEETING WITH RANDOLPH . PATIENT LIVES WITH HER AND MELODYREN SHE IS EMPLOYED FIULL TIME, SHE IS ACTIVE AND INDEPENDENT IN ALL ADLS AND MOBILITY SHE HAS NO VNA NO DMES SERVICES IN THE HOME DISCHARGE PLAN HOME WITH FAMILY NO SERVICES WOULD LIKE TO COMPLETE HCP ON THIS ADMISSION , TO SPEAK WITH FAMILY FIRST EPISODE OF DIVERTICULITIS WOULD LIKE TO TALK WITH NUTRITION REGARDING DIET POST DISCHARGE TRANSPORTATION FAMILY PCP MESSI BLANKENSHIP
[2022-02-01] MEDS: levoFLOXacin/D5W 750 MG/150 ML PIGGYBACK 100 MG IV (15:58)
[2022-02-01] MEDS: Docusate Sodium 100 MG CAPSULE PO ×2 (16:25→20:51)
--- NOTE | 2022-02-01 18:23 | PC.NURSE ---
Patient new complaint of sharp worsening RLQ pain, episode of vomiting. Dr. Rivera made aware. Verbal order to given PRN dialudid now. Dr. Mosquera at bedside to examine pt. Order placed for repeat CT scan. Will continue to monitor.
--- NOTE | 2022-02-01 18:24 | PM.EVENT ---
Event Note Date of Service: 02/01/22 Event Note: Patient evaluated for acute onset of right lower quadrant pain associated with nausea no bowel movement in last 2 days patient currently being treated for acute diverticulitis on IV antibiotics no fever chills On examination awake alert mild distress due to pain Abdomen soft, localized right lower quadrant tenderness with deep palpation no rebound no rigidity, bowel sounds audible Assessment and plan New onset right lower quadrant pain will obtain CT abdomen and pelvis continue IV antibiotics, IV fluids and IV Dilaudid for pain.
[2022-02-01] MEDS: iohexoL 350 MG/ML 100 ML INFUS..BTL IV (19:30)
[2022-02-01] MEDS: Acetaminophen 325 MG TABLET 650 MG PO (23:34)
[2022-02-02 03:59] VITALS: BP 106/57; PULSE 61; RESP 18; TEMP 36.3; O2SAT 94
[2022-02-02] MEDS: metroNIDAZOLE/NS 500 MG/100 ML PIGGYBACK 100 MG IV (06:05)
[2022-02-02 06:58] LABS: Hematocrit 35.5 % (37.0-47.0); Hemoglobin 11.9 g/dl (12.0-16.0); Mean Corpuscular HGB Conc 33.5 g/dl (31.0-35.0); Mean Corpuscular Hemoglobin 30.7 pg (27.0-33.0); Mean Corpuscular Volume 91.5 fL (80.0-98.0); Mean Platelet Volume 10.3 fL (9.4-12.3); Platelet Count 198 X10*3/uL (160-400); Red Blood Count 3.88 X10*6/uL (4.20-5.50); White Blood Count 10.3 X10*3/uL (4.8-10.8)
[2022-02-02 07:23] LABS: Anion Gap 9 (12-20); Blood Urea Nitrogen 6 mg/dL (9-16); Calcium 8.1 mg/dL (8.4-10.2); Carbon Dioxide 27 mmol/L (22-29); Chloride 107 mmol/L (96-108); Creatinine Clr Calc Pharmacy 163.9; Estimated Glomerular Filt Rate > 60; Glucose Fasting 88 mg/dL (60-99); Potassium 4.1 mmol/L (3.3-5.1); Sodium 139 mmol/L (135-145)
[2022-02-02 07:24] VITALS: BP 92/62; PULSE 66; RESP 18; TEMP 36.6; O2SAT 95
[2022-02-02] MEDS: Sertraline HCL 100 MG TABLET PO (07:47)
[2022-02-02] MEDS: Docusate Sodium 100 MG CAPSULE PO (07:47)
[2022-02-02] MEDS: buPROPion HCl XL 150 MG TAB.ER.24H PO (07:48)
[2022-02-02] MEDS: Enoxaparin Sodium 40 MG/0.4 ML SYRINGE SUBCUT (07:48)
--- NOTE | 2022-02-02 09:23 | P.PNIM_ITS ---
Subjective Subjective Date of Service: 02/02/22 Interval History: cc: llq pain interval history: had worsening pain yesterday that moved to RLQ, CT abd was done which was unchanged. Cardiovascular Cardiovascular: Reports no additional cardiovascular complaints Respiratory Respiratory: Reports no additional respiratory complaints Physical Exam Vital Signs: Vital Signs: Last Vital Signs Temp 97.9 F 02/02/22 07:24 Pulse 66 02/02/22 07:24 Resp 18 02/02/22 07:24 BP 92/62 02/02/22 07:24 Pulse Ox 95 02/02/22 07:24 BMI result Body Mass Index 35.7 General: AO X 3, in some discomfort Resp: CTA bilateral, no accessory muscles used CVS: S1,S2,RRR GI: soft, tender, non distended Neuro: motor grossly intact, alert Psych: appropriate affect, appropriate insight Objective Data Active Medications Bupropion HCl (Bupropion Hcl Xl 150 Mg Tab.Er.24h) 150 mg PO DAILY [facility] Last Admin: 02/02/22 07:48 Dose: 150 mg Documented by: JAY Docusate Sodium (Docusate Sodium 100 Mg Capsule) 100 mg PO BID [facility] Last Admin: 02/02/22 07:47 Dose: 100 mg Documented by: JAY Enoxaparin Sodium (Enoxaparin Sodium 40 Mg/0.4 Ml Syringe) 40 mg SUBCUT DAILY [facility] Last Admin: 02/02/22 07:48 Dose: 40 mg Documented by: JAY Hydromorphone HCl (Hydromorphone Hcl 1 Mg/Ml Syringe) 0.5 mg IVPUSH Q3H PRN; Protocol PRN Reason: Pain, Moderate (Pain Scale 4-6 Last Admin: 02/01/22 21:23 Dose: 0.5 mg Documented by: VALDEZ Levofloxacin (Levaquin) 750 mg in 150 mls @ 100 mls/hr IV Q24H [facility] Last Infusion: 02/01/22 17:40 Dose: 0 mls/hr Documented by: COTEMA Metronidazole (Flagyl) 500 mg in 100 mls @ 100 mls/hr IV Q8H [facility] Last Infusion: 02/02/22 07:09 Dose: 0 mls/hr Documented by: JAY Lactated Ringer's (Lr) 1,000 mls @ 80 mls/hr IVCONT .[id number] [facility] Last Infusion: 02/02/22 07:10 Dose: 80 mls/hr Documented by: JAY Metoclopramide HCl (Metoclopramide Hcl 10 Mg/2 Ml Vial) 5 mg IVPUSH Q6H PRN PRN Reason: nasuea Last Admin: 02/01/22 23:36 Dose: 5 mg Documented by: VALDEZ Pharmacy Consult (Consult Rx Perform Med Rec) 1 each MISCELLANE ONCE PRN PRN Reason: Consult order Sertraline HCl (Sertraline Hcl 100 Mg Tablet) 100 mg PO DAILY [facility] Last Admin: 02/02/22 07:47 Dose: 100 mg Documented by: JAY Sodium Chloride (0.9 % Sodium Chloride Flush 3 Ml Syringe) 3 ml IVFLUSH QSHIFT [facility] Last Admin: 02/02/22 07:11 Dose: Not Given Documented by: JAY Non-Admin Reason: IV Running Labs CBC & Chem 7: 02/02/22 06:48 02/02/22 06:48 Labs: Laboratory Results - last 24 hr 02/02/22 02/02/22 06:48 06:48 MCV 91.5 MCH 30.7 MCHC 33.5 RDW 12.0 Plt Count 198 MPV 10.3 Absolute Nucleated RBC 0.000 Nucleated RBC % (auto) 0.0 Anion Gap 9 L Estim Creat Clear Calc 163.9 Estimated GFR > 60 Fasting Glucose 88 Calcium 8.1 L Microbiology Microbiology Results: Microbiology 01/31/22 Unknown Urine Culture - Final Urine clean catch - Urine foley top Assessment and Plan (1) Diverticulitis: Status: Acute Plan 46F prsented with abdominal pain acute diverticulitis still with pain, repeat CT abd unchanged continue clears, iv fluids, pain control levaquin, flagyl no sepsis, tachycardia from pain mood disorder zoloft, wellbutrin htn lisinopril monitor bp dvt prophylaxis - lovenox full code reason for continued hospitalization: inability to tolerate po, requiring iv pain meds. Quality Stroke Does the patient have a stroke diagnosis?: No VTE Prior VTE?: No VTE Risk Level:: Medical - moderate - high VTE Device Contraindication: Treatment Not Indicated VTE Drug Contraindication: N/A - Med Ordered
[2022-02-02] MEDS: polyethylene glycoL 3350 17 GM POWD.PACK PO (10:13)
[2022-02-02] MEDS: Lactated Ringers 1,000 ML 80 ML IVCONT (10:14)
[2022-02-02 11:25] VITALS: BP 141/92; PULSE 79; RESP 18; TEMP 36.8; O2SAT 97
--- NOTE | 2022-02-02 12:09 | PM.DS ---
DS: Providers Provider Date of Service: 02/02/22 Date of admission: 01/31/22 16:38 Primary care physician: GISELLE Feliz DS: Diagnosis Discharge Diagnosis (1) Diverticulitis: Status: Acute DS: Summary Hospital Course Hospital Course: from initial hpi: 46-year-old female presented with 2 days of left lower quadrant abdominal pain.? Pain is sharp, 10/10, worse on movement, improved by lying still and by opiates, associated with inability to tolerate p.o. ? Patient tried taking NSAIDs for pain, but pain did not improve so she came to the ED today.? In ED CT abdomen showed left-sided diverticulitis, ? No abscess or free air. patient denies fever, chills, shortness of breath, chest pain. hospital course: patient was admitted for acute diverticulitis. she was treated with Levaquin and Flagyl. She had more abdominal pain later so had follow-up CT which was unchanged. Patient's pain eventually improved she was tolerating clears. She will be discharged home on 7 more days Augmentin. She should follow up with GI for colonoscopy. For hypertension she was treated with lisinopril. For her mood disorder she was continued on Zoloft and Wellbutrin. Time Spent with Patient Time attestation: Total time spent providing and/or coordinating discharge services: Discharge coordination time: Greater than 30 minutes Quality: Stroke Does the patient have a stroke diagnosis?: No Physical Exam Vital Signs: Vital Signs: Last Vital Signs Temp 98.2 F 02/02/22 11:25 Pulse 79 02/02/22 11:25 Resp 18 02/02/22 11:25 BP 141/92 H 02/02/22 11:25 Pulse Ox 97 02/02/22 11:25 BMI result Body Mass Index 35.7 General: AO X 3, no acute distress Resp: CTA bilateral, no accessory muscles used CVS: S1,S2,RRR GI: soft, non tender, non distended Neuro: motor grossly intact, alert Psych: appropriate affect, appropriate insight DS: Data Data Completed and Pending Labs on day of discharge: Laboratory Results - last 24 hr 02/02/22 02/02/22 06:48 06:48 WBC 10.3 RBC 3.88 L Hgb 11.9 L Hct 35.5 L MCV 91.5 MCH 30.7 MCHC 33.5 RDW 12.0 Plt Count 198 MPV 10.3 Absolute Nucleated RBC 0.000 Nucleated RBC % (auto) 0.0 Sodium 139 Potassium 4.1 Chloride 107 Carbon Dioxide 27 Anion Gap 9 L BUN 6 L Creatinine 0.56 Estim Creat Clear Calc 163.9 Estimated GFR > 60 Fasting Glucose 88 Calcium 8.1 L Discharge Plan Discharge Patient Disposition: Home, Self-Care Discharge Diagnosis: dicerticulitis Referrals: Benita Turner PA [Primary Care Provider] - 1 Week Efrain Monroe [Physician] - 1 Week (diverticulitis) Discharge Medications: New amoxicillin-pot clavulanate 875-125 mg tablet 1 tab PO Q12H Qty: 14 0RF Continued meloxicam 15 mg tablet 1 tab PO DAILY 0RF sertraline 100 mg tablet 1 tab PO DAILY 0RF lisinopril 5 mg tablet 1 tab PO DAILY 0RF bupropion HCl 150 mg tablet extended release 24 hr 1 tab PO DAILY 0RF Discharge Orders: Discharge Order (Routine); Ordered 02/02/22 Ordered By: Toni Rivera Diet: advance to usual diet Activity on Discharge: As tolerated Stand Alone Forms: Patient Portal Discharge page, Work/School Release Care Plan Goals: recovery Health Concerns: diverticulitis Plan of Treatment: 7 days augmentin, follow up with gi for colonoscopy, return if pain worsening Assessment: see above
--- NOTE | 2022-02-02 12:43 | MHC.CM.PN ---
PATIENT IS DISCHARGED HOME - SELF CARE. SHE ASSIGNED HER SPOUSE, ASAD, SOLE HCP AGENT. COPY UPLOADED INTO [employer] PATIENT HAS ORIGINAL AND ONE COPY. ONE COPY PLACED IN PAPER CHART. SPOUSE IN ROOM TO TRANSPORT. RN AWARE OF PLAN.
== END 2022-02-02 12:54 | disposition home or self-care (01) | DRG 392 ==
LOC: HO.ED 15:31 → HO.EDOVER 15:55 → HO.S3 17:27
PROVIDERS: Physician Assistant; Admitting Provider Internal Medicine; Emergency Provider Emergency Medicine; PCP Physician Assistant Medical; Visit Provider Internal Medicine
DX: K57.32 Diverticulitis of large intestine without perforation or abscess without bleeding (principal); F39 Unspecified mood [affective] disorder; I10 Essential (primary) hypertension; Z20.822 Contact with and (suspected) exposure to COVID-19; Z79.1 Long term (current) use of non-steroidal anti-inflammatories (NSAID); Z79.899 Other long term (current) drug therapy
CPT/HCPCS: 36415; 74177; 80048; 80076; 81001; 81025; 83690; 83735; 85025; 85027; 87086; 87635; 96361; 96365; 96375; 96376; 99285; J1170; J1650; J1885; J1956; J2270; J2405; J2765; Q9967

== ENCOUNTER 2022-08-10 10:04 | Outpatient (REF) | payer OTHER, SELFPAY ==
[2022-08-10 10:34] LABS: Binax Internal Control QC Valid; Binax Now Covid-19 Ag Negative (Negative)
== END 2022-08-10 10:05 | disposition home or self-care (01) ==
LOC: HO.HMGCLDS 10:04
PROVIDERS: PCP Family Medicine; Visit Provider Nurse Practitioner Family
DX: Z20.822 Contact with and (suspected) exposure to COVID-19 (principal); J06.9 Acute upper respiratory infection, unspecified
CPT/HCPCS: 87811; C9803

== ENCOUNTER 2023-07-18 20:31 | Emergency (ER) | payer OTHER, SELFPAY ==
--- NOTE | ~2023-07-18 | CT_ITS ---
EXAMINATION: CT ABDOMEN AND PELVIS WITH CONTRAST CLINICAL INFORMATION: Abdominal pain. COMPARISON: None available. TECHNIQUE: Multidetector volumetric images were obtained from the superior aspect of the liver through the pubic symphysis following administration 85 mL of Omnipaque 350 intravenous contrast. Sagittal and coronal reformatted images were obtained on the technologist's workstation. Oral contrast: No This CT examination was performed using dose optimization techniques as appropriate, variously including the following: *Automated exposure control *Adjustment of mA and/or kV according to patient size (this includes techniques or standardized protocols for targeted exams where dose is matched to indication/reason for exam; i.e. extremities or head) *Use of iterative reconstruction technique DLP: 855 mGy-cm FINDINGS: LUNG BASES: The visualized lung bases are unremarkable. LIVER, GALLBLADDER, AND BILIARY TREE: The liver is normal in size, shape, and attenuation. No focal hepatic lesion or biliary ductal dilatation is present. The gallbladder is unremarkable with no evidence of radiopaque gallstones, gallbladder wall thickening, or obvious pericholecystic inflammatory changes. PANCREAS: Unremarkable. SPLEEN: Unremarkable. ADRENAL GLANDS: Unremarkable. KIDNEYS AND URETERS: The kidneys are normal in size, shape, and attenuation. No hydronephrosis, hydroureter, or calculi seen. No perinephric stranding. There is a 1 cm hypodensity lower pole left kidney likely small cyst. BLADDER: Unremarkable. GASTROINTESTINAL TRACT: There are diverticula of the descending and the sigmoid colon without evidence for diverticulitis. There is mild infiltrative change along the distal descending colon anteriorly associated with fat. The appendix is not seen. ABDOMINAL WALL: No significant hernia is appreciated. LYMPH NODES: Normal. VASCULAR: Unremarkable. PELVIC VISCERA: Unremarkable. OSSEOUS STRUCTURES: Unremarkable. CT/CT abdomen pelvis w IV con IMPRESSION: 1. Diverticula of the descending and the sigmoid colon without diverticulitis. 2. There is mild infiltrative change along the anterior descending colon associated with fat possibly epiploic appendagitis. Fleischner guidelines were followed.
[2023-07-18 20:45] VITALS: BP 155/111; PULSE 69; RESP 20; TEMP 36.4; O2SAT 100; BMI 34.5
--- NOTE | 2023-07-18 20:48 | ED_ITS ---
HPI - Abdominal Pain General Chief Complaint: Abdominal Pain Stated Complaint: diverticulitis Time Seen by Provider: 07/18/23 23:52 Source: patient Mode of arrival: ambulatory Limitations: no limitations History of Present Illness HPI narrative: A 47-year-old female history of diverticular disease that required 2 h ospitalization in the past, presented today with 2 days history of left lower quadrant abdominal pain similar to her previous episodes of diverticulitis, pain is localized to the left lower quadrant with no radiation, pain is associated with nausea and vomiting, pain was described as severe 10/10 mostly constant for the past 2 days, no fever, no chills, last bowel movement was yesterday described as normal. Past surgical history significant for appendectomy and hysterectomy. Related Data Home Medications Medication Instructions Recorded Confirmed lisinopril 5 mg tablet 1 tab PO DAILY 01/31/22 08/10/22 sertraline 100 mg tablet 1 tab PO DAILY 01/31/22 08/10/22 Previous Rx's Medication Instructions Recorded phenazopyridine 200 mg tablet 200 mg PO TID 3 days #9 tabs 10/29/22 (Pyridium) sulfamethoxazole 800 1 tab PO BID 7 days #14 tabs 10/29/22 mg-trimethoprim 160 mg tablet (Bactrim DS) ciprofloxacin HCl 500 mg tablet 500 mg PO BID #14 tabs 07/19/23 (Cipro) Allergies Allergy/AdvReac Type Severity Reaction Status Date / Time No Known Allergies Allergy Verified 07/18/23 20:45 [No Known Allergies*] Review of Systems Review of Systems All other systems are reviewed and are negative Constitutional: Reports as per HPI and Reports no additional constitutional complaints Eyes: Reports as per HPI and Reports no additional eye complaints Reports system reviewed and no additional complaints, except as documented Cardiovascular: Reports as per HPI and Reports no additional cardiovascular complaints Respiratory: Reports as per HPI and Reports no additional respiratory complaints Gastrointestinal: Reports as per HPI and Reports no additional gastrointestinal complaints Genitourinary: Reports no additional female genitourinary complaints Musculoskeletal: Reports no additional musculoskeletal complaints Skin/Breast: Reports system reviewed and no additional complaints, except as docu Psychiatric: Reports no additional psychiatric complaints Endocrine: Reports no additional endocrine complaints Hematologic/Lymphatic: Reports no additional hematologic/lymphatic complaints Allergic/Immunologic: Reports no additional allergic/immunologic complaints Reports system reviewed and no additional complaints, except as documented and Reports Abnormal speech present [facility] Past Medical History Medical History HTN (hypertension) Mood disorder Ovarian cyst Surgical History History of partial hysterectomy Family History Family History Father Diverticulitis Social History Social History Household Members: Spouse and Children Do you presently have visiting nurse or other home services: No Alcohol intake: never Patient Tobacco Use Status: Never used Tobacco Advance Directives: No Advance Directives Information Provided: Yes service: No Current occupational status: employed Physical Exam ED Vital Signs: Vital Signs - 24 hr 07/18/23 20:45 07/18/23 23:52 Temperature 97.5 F 98.3 F Pulse Rate 69 61 Respiratory Rate 20 16 Blood Pressure 155/111 H 136/94 H Pulse Oximetry 100 Oxygen Delivery Method Room Air BMI result Body Mass Index 34.5 Vital signs have been reviewed as appeared to be correct. Blood pressure normal. Heart rate normal. Respiration rate normal. Temperature normal. Oxygen saturation normal. Appearance: Alert. Oriented X3. No acute distress. Head: Normal external exam. Normocephalic. Atraumatic. No Stubbs signs noted. No raccoon eyes noted Eyes: PERRLA. EOMI. Conjunctiva and sclera normal. Eyelids normal. ENT: TM's Normal. Pharynx normal. Uvula midline. Moist mucous membranes. No trismus noted. No drooling noted. No muffled voice noted. Neck: Normal inspection. Neck supple. FROM. No adenopathy. Thyroid Normal. No meningeal signs. No neck mass noted. CVS: Normal heart rate and rhythm. Heart sound normal. No murmurs noted. Pulses normal throughout. Respiratory: No respiratory distress. Painless inspiration. Breath sounds normal. No wheezes/rales/rhonchi noted. Chest nontender. No accessory muscle usage noted or decreased air movement noted. Abdomen: Soft, left lower quadrant tenderness, no rebound tenderness or guarding.. Bowel sounds normal in all 4 quadrants. No distention noted. No organomegaly noted. No visible injury noted. Back: No CVA tenderness. Full range of motion noted. Skin: Skin warm and dry. Normal skin color. Normal skin turgor. No rashes/lesions/lacerations noted. Extremities: No lower extremity edema. Extremities exhibit normal range of motion. Extremities nontender. Neuro: Oriented X 3. Cranial nerve exam: II-XII are grossly intact No motor deficit. No sensory deficit. Reflexes normal. Course Course Course Narrative: This is an RME: Additional HPI, ROS, PE not included below will be deferred to primary provider. This is a 47-year-old female presenting to the emergency department for evaluation of lower abdominal pain since tuesday. Pain is severe. Hx of diverticulitis has been admitted for, feels similar. Pt appears uncomfortable. Unable to tolerate PO. Hypertensive at 155/111, afebrile Plan: Labs, UA, CT abd/pelvis Reevaluation(s) Reevaluation #1: 47-year-old female came in for abdominal pain, CT is not revealing diverticulitis more concern of epiploic appendagitis, patient with UTI will start the patient on Cipro and patient was instructed to take NSAIDs for her pain and follow up with PCP, patient was instructed to return if worsening of her abdominal pain. Time: 02:22 Medical Decision Making Differential Diagnosis Differential Diagnoses: The differential diagnosis associated with the presentation includes (Diverticulitis, colitis, lymphadenitis, electrolyte abnormality, UTI, severe anemia.) Admission/Observation Consideration of admission/observation: Escalation of care including admission/observation considered Lab Data MDM Lab Attestation statement: I reviewed the patient's lab results. 07/18/23 21:41 07/18/23 21:41 Labs: Lab Results 07/18/23 07/18/23 07/19/23 Range/Units 21:41 21:41 00:07 WBC 10.8 (4.8-10.8) X10*3/uL RBC 4.40 (4.20-5.50) X10*6/uL Hgb 13.7 (12.0-16.0) g/dl Hct 39.3 (37.0-47.0) % MCV 89.3 (80.0-98.0) fL MCH 31.1 (27.0-33.0) pg MCHC 34.9 (31.0-35.0) g/dl RDW 12.0 (11.0-16.0) % Plt Count 259 D (160-400) X10*3/uL MPV 10.8 (9.4-12.3) fL Immature Gran % (Auto) 0.3 (0.0-0.4) % Neut % (Auto) 56.9 (45-73) % Lymph % (Auto) 29.3 (20-40) % [place] % (Auto) 7.9 (2-11) % Eos % (Auto) 5.1 H (0-4) % Baso % (Auto) 0.5 (0-2) % Lymph # (Auto) 3.2 (1.2-4.9) X10*3/uL [place] # (Auto) 0.9 (0.1-1.2) X10*3/uL Eos # (Auto) 0.6 H (0.0-0.4) X10*3/uL Baso # (Auto) 0.1 (0.0-0.2) X10*3/uL Abs Immat Gran (auto) 0.03 (0.00-0.03) X10*3/uL Absolute Neuts (auto) 6.2 (2.0-8.3) x10*3/uL Absolute Nucleated RBC 0.000 (0.0-0.012) X10*3/uL Nucleated RBC % (auto) 0.0 (0.0-0.2) /100WBC Sodium 141 (135-145) mmol/L Potassium 3.9 (3.3-5.1) mmol/L Chloride 112 H (96-108) mmol/L Carbon Dioxide 23 (22-29) mmol/L Anion Gap 10 L (12-20) BUN 14 (9-16) mg/dL Creatinine 0.66 (0.5-1.4) mg/dL Estim Creat Clear Calc 139.5 Estimated GFR > 60 Random Glucose 109 (60-115) mg/dL Calcium 8.8 D (8.4-10.2) mg/dL Magnesium 2.1 (1.6-2.6) mg/dL Total Bilirubin 0.4 (0.0-1.0) mg/dL Direct Bilirubin 0.1 (0.0-0.5) mg/dL AST 14 (5-31) U/L ALT 18 (0-31) U/L Alkaline Phosphatase 91 (39-117) U/L Total Protein 7.0 (6.5-8.0) g/dL Albumin 3.8 (3.5-5.0) g/dL Lipase 24 (8-78) U/L Urine Color Yellow Urine Appearance Hazy Urine pH 6.0 (5.0-9.0) Ur Specific [place] 1.025 (1.005-1.025) Urine Protein Negative (Neg-Trace) mg/dL Urine Glucose (UA) Negative (Negative) mg/dL Urine Ketones Negative (Negative) mg/dL Urine Blood Negative (Negative) Urine Nitrite Positive H (Negative) Ur Leukocyte Esterase Negative (Negative) Urine RBC 3-5 H (0-2) /HPF Urine WBC 6-10 H (0-5) /HPF Ur Squamous Epith Cells 6-10 (0-2) /HPF Urine Bacteria 2+ (None Seen) Hyaline Casts 0-2 (0-2) /LPF Independent Interpretation I performed an independent interpretation of an: CT Scan (Abdomen and pelvis:1. Diverticula of the descending and the sigmoid colon without diverticulitis. 2. There is mild infiltrative change along the anterior descending colon associated with fat possibly epiploic appendagitis. ) Radiology Impression Discussion of test interpretation with radiology: I have reviewed the radiologist's reading. Medications Administered Discontinued Medications Generic Name Dose Route Start Last Admin Trade Name Freq PRN Reason Stop Dose Admin Morphine Sulfate 2 mg 07/18/23 23:57 07/19/23 00:33 Morphine Sulfate 2 Mg/Ml Cartridge IVPUSH 07/18/23 23:58 2 mg ONCE ONE Administration Protocol Ondansetron HCl 4 mg 07/18/23 22:40 07/18/23 22:43 Ondansetron Odt 4 Mg Tab.Rapdis TRANSLINGU 07/18/23 22:41 4 mg ONCE ONE Administration Ondansetron HCl 4 mg 07/18/23 23:57 07/19/23 00:33 Ondansetron Hcl 4 Mg/2 Ml Vial IVPUSH 07/18/23 23:58 4 mg ONCE ONE Administration Discharge Plan Discharge Clinical Impression: Abdominal pain, Epiploic appendagitis, UTI (urinary tract infection) Patient Disposition: Home, Self-Care Instructions: Urinary Tract Infection in Women (DC) Additional Instructions: Take ibuprofen 200 mg tablet every 6 hours if needed for pain (zpps-mul-xskopab medication). Prescriptions: New ciprofloxacin HCl [Cipro] 500 mg tablet 500 mg PO BID Qty: 14 0RF No Action sertraline 100 mg tablet 1 tab PO DAILY lisinopril 5 mg tablet 1 tab PO DAILY sulfamethoxazole-trimethoprim [Bactrim DS] 800-160 mg tablet 1 tab PO BID 7 Days Qty: 14 0RF phenazopyridine [Pyridium] 200 mg tablet 200 mg PO TID 3 Days Qty: 9 0RF Referrals: Joyce Lara MD [Primary Care Provider] -
[2023-07-18 21:46] LABS: MANUAL DIFF FLAG NO
[2023-07-18 22:00] LABS: Basophils Absolute Auto 0.1 X10*3/uL (0.0-0.2); Basophils Percent Auto 0.5 % (0-2); Eosinophils Absolute Auto 0.6 X10*3/uL (0.0-0.4); Eosinophils Percent Auto 5.1 % (0-4); Hematocrit 39.3 % (37.0-47.0); Hemoglobin 13.7 g/dl (12.0-16.0); Imm Gran Abs Auto 0.03 X10*3/uL (0.00-0.03); Imm Gran Pct Auto 0.3 % (0.0-0.4); Lymphocytes Absolute Auto 3.2 X10*3/uL (1.2-4.9); Lymphocytes Percent Auto 29.3 % (20-40); Mean Corpuscular HGB Conc 34.9 g/dl (31.0-35.0); Mean Corpuscular Hemoglobin 31.1 pg (27.0-33.0); Mean Corpuscular Volume 89.3 fL (80.0-98.0); Mean Platelet Volume 10.8 fL (9.4-12.3); Monocytes Absolute Auto 0.9 X10*3/uL (0.1-1.2); Monocytes Percent Auto 7.9 % (2-11); Neutrophils Absolute Auto 6.2 x10*3/uL (2.0-8.3); Neutrophils Percent Auto 56.9 % (45-73); Platelet Count 259 X10*3/uL (160-400); White Blood Count 10.8 X10*3/uL (4.8-10.8)
[2023-07-18 22:03] LABS: Alanine Aminotransferase 18 U/L (0-31); Albumin Level 3.8 g/dL (3.5-5.0); Alkaline Phosphatase 91 U/L (39-117); Anion Gap 10 (12-20); Aspartate Amino Transferase 14 U/L (5-31); Bilirubin Direct 0.1 mg/dL (0.0-0.5); Bilirubin Total 0.4 mg/dL (0.0-1.0); Blood Urea Nitrogen 14 mg/dL (9-16); Calcium 8.8 mg/dL (8.4-10.2); Carbon Dioxide 23 mmol/L (22-29); Chloride 112 mmol/L (96-108); Creatinine Clr Calc Pharmacy 139.5; Estimated Glomerular Filt Rate > 60; Glucose Random 109 mg/dL (60-115); Lipase 24 U/L (8-78); Magnesium 2.1 mg/dL (1.6-2.6); Potassium 3.9 mmol/L (3.3-5.1); Sodium 141 mmol/L (135-145)
[2023-07-18] MEDS: Ondansetron ODT 4 MG TAB.RAPDIS TRANSLINGU (22:43)
--- NOTE | 2023-07-18 22:43 | PC.NURSE ---
pt medicated per MAR.
[2023-07-18 23:52] VITALS: BP 136/94; PULSE 61; RESP 16; TEMP 36.8
[2023-07-19 00:13] LABS: Appearance Urine Hazy; Color Urine Yellow; Glucose Urine UA Negative (Negative); Leukocyte Esterase Urine Negative (Negative); Nitrite Urine Positive (Negative); Specific Gravity - Urine 1.025 (1.005-1.025); UMIC TRIGGER UACC YES; Urine Blood Negative (Negative); Urine Ketones Negative (Negative); Urine Protein Negative (Neg-Trace)
[2023-07-19 00:20] LABS: Bacteria Urine 2+ (None Seen); Hyaline Casts Urine 0-2 /LPF (0-2); UACC Culture Trigger YES
[2023-07-19] MEDS: ondansetron HCL 4 MG/2 ML VIAL IVPUSH (00:33)
[2023-07-19] MEDS: Morphine Sulfate 2 MG/ML CARTRIDGE IVPUSH (00:33)
[2023-07-19 02:00] VITALS: BP 108/69; PULSE 62; RESP 16; TEMP 36.6; O2SAT 96
== END 2023-07-19 02:52 | disposition home or self-care (01) ==
PROVIDERS: Physician Assistant Medical; Emergency Provider Emergency Medicine; PCP Family Medicine
DX: N39.0 Urinary tract infection, site not specified (principal); K63.89 Other specified diseases of intestine; R10.32 Left lower quadrant pain; I10 Essential (primary) hypertension; Z79.899 Other long term (current) drug therapy
CPT/HCPCS: 36415; 74177; 80048; 80076; 81001; 83690; 83735; 85025; 87086; 96374; 96375; 99283; 99284; J2270; J2405

== ENCOUNTER 2023-12-31 09:19 | Outpatient (AMB) | payer OTHER, SELFPAY ==
--- NOTE | 2023-12-31 09:53 | MHC.OFFWIV ---
Intake Vital Signs 12/31/23 09:54 Height 5 ft 9 in BMI Reason not done Patient refused/unable BP 118/74 Blood Pressure Location Rt brachial Position Sitting Pulse 76 Pulse Source Pulse Oximeter Temp 97.8 F Temp Source Temporal Artery Scan Pulse Oximetry (%) 98 Intake Visit Reasons: EP UTI LFT side lower back pain Intake Note: pt is here for c/o possible uti, with lower back pain Patient Tobacco Use Status: Never used Tobacco Allergies No Known Allergies [No Known Allergies*] Allergy (Verified 12/31/23 09:54) Do you need a note to return to daycare/school/sports/work: No HPI HPI Comments History of Present Illness Details This is a 48-year-old female who presented to the office complaining of left-sided low back pain as well as dysuria for the past 2 days. 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 She started to develop mild burning with urination yesterday as well as some left-sided back pain. She denies any hematuria. She denies any significant urinary frequency or urgency. Patient denies any numbness/weakness/paresthesias into her extremities. [facility] Medical History HTN (hypertension) Mood disorder Ovarian cyst Surgical History History of partial hysterectomy Family History Father Diverticulitis Social History Household Members: Spouse and Children Do you presently have visiting nurse or other home services: No Alcohol intake: never Patient Tobacco Use Status: Never used Tobacco service: No Current occupational status: employed Review of Systems Const All systems reviewed & are unremarkable except as noted in HPI and below Reports no additional complaints Eyes Reports no additional complaints ENT Reports no additional complaints Card Reports no additional complaints Resp Reports no additional complaints GI Reports no additional complaints Reports no additional complaints Musc Reports no additional complaints Skin/Breast Reports system reviewed and no additional complaints, except as documented Neuro Reports no additional complaints Psych Reports no additional complaints Endo Reports no additional complaints Alex/Lymph Reports no additional complaints Aller/Immun Reports no additional complaints Physical Exam Vital Signs: Last Vital Signs Temp 97.8 F 12/31/23 09:54 Pulse 76 12/31/23 09:54 BP 118/74 12/31/23 09:54 Pulse Ox 98 12/31/23 09:54 Const Other: Vital signs reviewed. Constitutional: Non-toxic appearing. No acute distress. Well-developed and well-nourished. HEENT: Normocephalic and atraumatic. Skin: Warm and dry. No rashes or lesions noted. Neck: Full and painless range of motion. No cervical lymphadenopathy. Cardio: Regular rate and rhythm. No murmurs, gallops, or rubs. No lower extremity edema. No JVD. Pulmonary: No respiratory distress. No accessory muscle usage. Clear to auscultation bilaterally without wheezing, crackles, or rhonchi. Gastrointestinal: Soft, nontender, and nondistended in all 4 quadrants. Normoactive bowel sounds in all 4 quadrants. Genitourinary: No CVA tenderness. Musculoskeletal: Normal range of motion in joints throughout the body. No deformity or other signs of injury. She has mild tenderness to palpation and muscle spasms of the bilateral lumbar paraspinal musculature (left greater than right). Neuro: Alert and oriented x4. Cranial nerves 2-12 grossly intact. No focal deficits appreciated. Psych: Normal mood and affect. Results AMB Urinalysis, Automated UA Leukoctes 0 Moses/uL Last Edit by Ciro Brewer CMA on 12/31/23 10:08 UA Nitrite Negative Last Edit by Ciro Brewer CMA on 12/31/23 10:08 UA Urobilinogen 0.2 mg/dL Last Edit by Ciro Brewer CMA on 12/31/23 10:08 UA Protein 0 mg/dL Last Edit by Ciro Brewer CMA on 12/31/23 10:08 UA pH 6.0 Last Edit by Ciro Brewer CMA on 12/31/23 10:08 UA Blood 0 Daniel/uL Last Edit by Ciro Brewer CMA on 12/31/23 10:08 UA Specific [place] 1.025 Last Edit by Ciro Brewer CMA on 12/31/23 10:08 UA Ketone Negative Last Edit by Ciro Brewer CMA on 12/31/23 10:08 UA Bilirubin 0 mg/dL Last Edit by Ciro Brewer CMA on 12/31/23 10:08 UA Glucose 0 mg/dL Last Edit by Ciro Brewer CMA on 12/31/23 10:08 Results Reviewed Results Reviewed: Laboratory Last Values Urine pH (Auto) 6.0 12/31/23 10:07 Specific [place] (Auto) 1.025 12/31/23 10:07 Urine Protein (Auto) 0 mg/dL 12/31/23 10:07 Glucose (UA)(Auto) 0 mg/dL 12/31/23 10:07 Urine Ketones (Auto) Negative 12/31/23 10:07 Urine Blood (Auto) 0 Daniel/uL 12/31/23 10:07 Urine Nitrite (Auto) Negative 12/31/23 10:07 Urine Bilirubin (Auto) 0 mg/dL 12/31/23 10:07 Urine Urobilinogen (Auto) 0.2 mg/dL 12/31/23 10:07 Leukocyte Esterase (Auto) 0 Moses/uL 12/31/23 10:07 Assessment & Plan Assessment & Plan (1) Dysuria: Code(s): R30.0 - Dysuria (2) Back muscle spasm: Code(s): M62.830 - Muscle spasm of back Plan This is a 48-year-old female who presented to the walk-in clinic with concerns for a urinary tract infection. She reports mild dysuria as well as left-sided low back pain x2 days. Her urinalysis was negative for nitrites, leukocyte esterase, or red blood cells. There is concern for mild bladder irritation in the setting of holding her urine so she was sent home on p.o. phenazopyridine 200 mg 3 times daily as needed for bladder spasms. Additionally, her low back pain appears to be more musculoskeletal in nature as she has bilateral tenderness to palpation of the lumbar paraspinal musculature. She does not have any CVA tenderness or hematuria to suggest pyelonephritis or nephrolithiasis. Patient was given a prescription for p.o. methocarbamol 750 mg 3 times daily as needed for muscle spasms. Recommended supportive management including rest/activity modification, heat to the area, [id number] lidocaine patches, and acetaminophen/ibuprofen for pain management. Encouraged the patient to increase her fluid intake as well and to avoid holding her urine. The patient was advised to proceed to the emergency room if she were to develop hematuria, fever/chills, unilateral flank pain, or any worsening/persistent symptoms. The patient felt reassured that her urine was negative. The patient verbalized her understanding and she is in agreement with the plan for discharge home with symptomatic management. Orders: Orders AMB Urinalysis Automated Today Z13.9 - Encounter for screening, unspecified Medications: New methocarbamol 750 mg PO Q8H PRN 20 tabs 0RF muscle spasm phenazopyridine 200 mg PO TID PRN 10 tabs 0RF pain Coding Level of Care Code Est Pt Level 3 (83687) Diagnoses Dysuria R30.0 Back muscle spasm M62.830
[2023-12-31 09:54] VITALS: BP 118/74; PULSE 76; TEMP 36.6; O2SAT 98
== END 2023-12-31 10:22 | disposition home or self-care (01) ==
PROVIDERS: PCP Family Medicine; Visit Provider Physician Assistant Medical
DX: R30.0 Dysuria (principal); M62.830 Muscle spasm of back; Z13.9 Encounter for screening, unspecified
CPT/HCPCS: 81003; 99051; 99213

== ENCOUNTER 2024-02-11 11:19 | Outpatient (AMB) | payer OTHER, SELFPAY ==
[2024-02-11 11:21] VITALS: BP 110/70; PULSE 74; TEMP 36.6; O2SAT 98
--- NOTE | 2024-02-11 11:21 | AM.OFFWIN_ITS ---
Intake Vital Signs 02/11/24 11:21 Height 5 ft 9 in BMI Reason not done Patient refused/unable BP 110/70 Blood Pressure Location Lt brachial Position Sitting Pulse 74 Pulse Source Pulse Oximeter Temp 97.8 F Temp Source Oral Pulse Oximetry (%) 98 Oxygen Delivery Method Room Air Intake Visit Reasons: EP RT Ear ache Intake Note: pt is here for right ear ache Patient Tobacco Use Status: Never used Tobacco Allergies No Known Allergies [No Known Allergies*] Allergy (Verified 02/11/24 11:21) Do you need a note to return to daycare/school/sports/work: No HPI HPI Comments History of Present Illness Details 48-year-old female presents for right ea r pain and muffled hearing. Denies fever chills. PFSH Medical History HTN (hypertension) Mood disorder Ovarian cyst Surgical History History of partial hysterectomy Family History Father Diverticulitis Social History Household Members: Spouse and Children Do you presently have visiting nurse or other home services: No Alcohol intake: never Patient Tobacco Use Status: Never used Tobacco service: No Current occupational status: employed Physical Exam Vital Signs: Last Vital Signs Temp 97.8 F 02/11/24 11:21 Pulse 74 02/11/24 11:21 BP 110/70 02/11/24 11:21 Pulse Ox 98 02/11/24 11:21 Oxygen Delivery Method Room Air 02/11/24 11:21 Const General: cooperative, healthy appearing, no acute distress and alert Orientation/consciousness: patient oriented x3 Limitations: no limitations HEENT Other: Mild tracheal tenderness and pain with auricular manipulation. Erythema in the inner canal wax present unable to visualize TM Head: Yes normal to inspection Ears: hearing grossly normal bilaterally General nose exam: Normal external nose present Resp Effort & Inspection: normal respiratory effort and able to speak in complete sentences Cardio Rate: regular rate Skin General skin exam: no rashes or lesions noted Neuro General: patient oriented x3 Extrem General: Yes normal to inspection Assessment & Plan Assessment & Plan (1) Otitis externa: Code(s): H60.90 - Unspecified otitis externa, unspecified ear Qualifiers: Chronicity: acute Laterality: left Otitis externa type: unspecified type Qualified Code(s): H60.502 - Unspecified acute noninfective otitis externa, left ear Plan: VSS. Exam notable for tragal tenderness and pain with auricular manipulation, mild erythema in the canal. Cerumen removed by irrigation examination reveals TM intact mild bulging still with erythema in the canal minor swelling will start ofloxacin drops (2) Eustachian tube dysfunction: Code(s): H69.90 - Unspecified Eustachian tube disorder, unspecified ear Qualifiers: Laterality: right Qualified Code(s): H69.91 - Unspecified Eustachian tube disorder, right ear Plan: See above Medications: New ofloxacin 0.3% 10 drps otic (ears) DAILY 7 days 10 mL 0RF Coding Level of Care Code Est Pt Level 3 (70129) Diagnoses Acute otitis externa of left ear, unspecified type H60.502 Chronicity: acute Laterality: left Otitis externa type: unspecified type Dysfunction of right eustachian tube H69.91 Laterality: right
== END 2024-02-11 12:11 | disposition home or self-care (01) ==
LOC: HO.HMGWI 11:19
PROVIDERS: PCP Family Medicine
DX: H60.502 Unspecified acute noninfective otitis externa, left ear (principal); H69.91 Unspecified Eustachian tube disorder, right ear
CPT/HCPCS: 99051; 99213

== ENCOUNTER 2024-03-14 13:57 | Emergency (ER) | payer OTHER, SELFPAY ==
[2024-03-14 14:15] VITALS: BP 134/104; PULSE 84; RESP 18; TEMP 37.2; O2SAT 98; BMI 35.6
--- NOTE | 2024-03-14 14:18 | ED.GENADULT ---
HPI - General Adult General Chief complaint: Upper Respiratory Symptoms Stated complaint: hurts to breath Related Data Home Medications ?Medication ?Instructions ?Recorded ?Confirmed lisinopril 5 mg tablet 1 tab PO DAILY 01/31/22 08/10/22 sertraline 100 mg tablet 1 tab PO DAILY 01/31/22 08/10/22 meloxicam 15 mg tablet 15 mg PO DAILY 12/31/23 Previous Rx's ?Medication ?Instructions ?Recorded ofloxacin 0.3 % ear drops 10 drp otic (ears) DAILY 7 days 02/11/24 #10 mL Allergies Allergy/AdvReac Type Severity Reaction Status Date / Time No Known Allergies Allergy Verified 03/14/24 14:16 [No Known Allergies*] PMFSH Past Medical History Medical History HTN (hypertension) Mood disorder Ovarian cyst Surgical History History of partial hysterectomy Family History Family History Father Diverticulitis Social History Social History Household Members: Spouse and Children Do you presently have visiting nurse or other home services: No Alcohol intake: never Patient Tobacco Use Status: Never used Tobacco Advance Directives: No Advance Directives Information Provided: No service: No Current occupational status: employed Physical Exam ED Vital Signs: Vital Signs - 24 hr 03/14/24 14:15 Temperature 99.0 F Pulse Rate 84 Respiratory Rate 18 Blood Pressure 134/104 H Pulse Oximetry 98 Oxygen Delivery Method Room Air BMI result Body Mass Index 35.6 Course Course Course Narrative: RME:?48 yo female hx of HTN, mood disorder, and diverticulitis here w/ chest pain on breathing, cough, SOB x1 days. admits to subjective fever. no known sick contacts. no recent travelo or long car rides. took motrin and daqyul at 0430 today. labs, ekg. trop, cxr, and viral swabs ordered. Full HPI, ROS and PE to be performed by the primary ED provider. Reevaluation(s) Reevaluation #1: Patient the ED without completing treatment. Discharge Plan Discharge Clinical Impression: Cough Patient Disposition: Left W/O Completing Treatment Prescriptions: No Action sertraline 100 mg tablet 1 tab PO DAILY lisinopril 5 mg tablet 1 tab PO DAILY ofloxacin 0.3 % drops 10 drp otic (ears) DAILY 7 Days Qty: 10 0RF meloxicam 15 mg tablet 15 mg PO DAILY Discharge Date/Time: 03/14/24 16:23
== END 2024-03-14 16:23 | disposition left against medical advice (07) ==
LOC: HO.ED 16:03
PROVIDERS: Emergency Provider Emergency Medicine
DX: R05.9 Cough, unspecified (principal)
CPT/HCPCS: 99281

== ENCOUNTER 2025-06-08 10:53 | Outpatient (AMB) | payer OTHER, SELFPAY ==
[2025-06-08 11:21] VITALS: BP 86/60; PULSE 68; RESP 15; TEMP 36.8; O2SAT 97; BMI 30.9
--- NOTE | 2025-06-08 11:21 | AM.OFFWIN_ITS ---
Intake Vital Signs 06/08/25 11:21 Height 5 ft 8 in Weight 203 lb BMI 30.9 BP 86/60 L Blood Pressure Location Lt brachial Position Sitting Respiration 15 Pulse 68 Pulse Source Pulse Oximeter Temp 98.3 F Temp Source Oral Pulse Oximetry (%) 97 Oxygen Delivery Method Room Air Intake Visit Reasons: EP back pain from head to buttocks Intake Note: Pt is here today c/o Let side of head down to Lt side of buttock since x9days no trauma woke up with pain Patient Tobacco Use Status: Never used Tobacco Allergies No Known Allergies (No Known Allergies*) Allergy (Verified 06/23/25 08:06) HPI EP back pain from head to buttocks HPI Details Patient is a 49-year-old female 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 She comes to the walk-in clinic complaining recurrent low back pain that she attributes to her drawn, having had a similar episode over a year ago that was resistant to initial muscle relaxers prescribed. She states that the most severe area has been the left low back, and it radiates both up to her neck, and down to her buttock. She denies weakness numbness or tingling to the left leg. There is no cauda equina symptoms reported. She also denies malaise or myalgias, fever or chills, nausea vomiting or diarrhea, abdominal pain, flank pain, pelvic pain or vaginal discharge or bleeding, weight changes, or other significant associated symptoms [facility] Medical History Mood disorder HTN (hypertension) Ovarian cyst Surgical History History of partial hysterectomy Family History Father Diverticulitis Social History Household Members: Spouse and Children Do you presently have visiting nurse or other home services: No Alcohol intake: never Patient Tobacco Use Status: Never used Tobacco service: No Current occupational status: employed Review of Systems Neuro Denies confusion Psych Denies confusion Physical Exam Vital Signs: Last Vital Signs Temp 98.3 F 06/08/25 11:21 Pulse 68 06/08/25 11:21 Resp 15 06/08/25 11:21 BP 86/60 L 06/08/25 11:21 Pulse Ox 97 06/08/25 11:21 Oxygen Delivery Method Room Air 06/08/25 11:21 BMI result Body Mass Index 30.9 Const General: cooperative, healthy appearing, alert, acute distress, tired appearing and well groomed; No comfortable or confusion Nutritional Appearance: average body habitus Orientation/consciousness: patient oriented x3 and No confusion Limitations: no limitations General: Yes no CVA tenderness Back/Spine/Pelvis Back: no CVA tenderness Thoracic/Lumbar Spine: thoracic and lumbar spine normal to inspection, No thoraco-lumbar ROM normal, paraspinal muscle tenderness (Left greater than right), thoraco-lumbar ROM limited, thoraco-lumbar spasm, No thoracic spinal tenderness and No lumbar spinal tenderness Sacroiliac joints: on the left Skin Other: Good color warm and dry Neuro General: patient oriented x3 and No confusion Extrem Other: Left lower leg strength decreased compared to right, secondary to pain. Neurovascularly intact distally bilateral lower extremities. Patient able to ambulate, but with antalgic gait. Assessment & Plan Assessment & Plan (1) Lumbar back pain: Code(s): M54.50 - Low back pain, unspecified Plan: Patient is a 49-year-old female with recurrent episode of left low back pain with radiculopathy both up and down her spine, likely due to extensive driving and job duties bending over for long periods doing oral surgery. Declines x-ray today, and desires stronger muscle relaxers, as methocarbamol that she has been taking is not relieving her symptoms. She does have meloxicam already at home, and has been attempting heating and stretching, but her pain level has been limiting this. I agreed to write her for a short course of Valium to help all eviate what appears to be a spasm to her left paraspinal muscle. However she should follow up if symptoms persist or worsen, and go to the emergency department with worrisome symptoms. She was amenable to this Medications: New diazepam (Valium) 2 mg PO BID PRN 6 tabs 0RF muscle pain Coding Level of Care Code Est Pt Level 4 (96351) Diagnoses Lumbar back pain M54.50
== END 2025-06-08 13:31 | disposition home or self-care (01) ==
PROVIDERS: Visit Provider Physician Assistant Medical
DX: M54.50 Low back pain, unspecified (principal)

== ENCOUNTER 2025-06-23 07:57 | Emergency (ER) | payer OTHER, SELFPAY ==
--- NOTE | ~2025-06-23 | XR_ITS ---
CLINICAL HISTORY: low back pain Exam: AP, lateral, and spot lateral views of the lumbar spine. Comparison: None provided. Findings: Minimal convex left mid lumbar curvature with apex at L2-3. Alignment is anatomic on the lateral view. No fracture. Disc space heights are well preserved. Sacroiliac joints are unremarkable. Impression: 1. Minor spinal curvature may be related to patient positioning or muscle spasm. Otherwise, negative lumbar spine radiographs. This document has been electronically signed by: Mason Moon MD on 06/23/2025 09:48:56
[2025-06-23 08:04] VITALS: BP 134/90; PULSE 60; RESP 16; TEMP 35.7; O2SAT 98; BMI 31.0
[2025-06-23 08:41] LABS: Appearance Urine Clear; Glucose Urine UA Negative (Negative); PH 7.0 (5.0-9.0); Specific Gravity - Urine 1.015 (1.005-1.025); UMIC TRIGGER UACC YES
[2025-06-23 08:42] LABS: UPreg QC Valid YES
[2025-06-23 08:43] LABS: UACC Culture Trigger YES
--- NOTE | 2025-06-23 09:22 | ED.BACK ---
HPI - Back Pain/Injury General Chief Complaint: Back Pain/Injury Stated Complaint: Back pain Time Seen by Provider: 06/23/25 08:12 Source: patient, family and old records reviewed Mode of arrival: ambulatory Limitations: no limitations History of Present Illness ED Provider: STEVE GEORGES Narrative: 49 yo female with PMH of HTN, mood disorder here with c/o 3 months of atraumatic L low back pain but no b/b incontinence, no saddle anesthesia, no IVDA, no thinners. No fevers, abdominal pain or unintentional weight loss. Hurts to move. 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 She went to urgent care and was started on short course valium which helped. She has not had xrays. She did not take any OTC meds this AM. Pain shoots up and down the spine. MD elicited complaint: back pain Pertinent past history: prior back pain Onset (ago): month(s) (3) Timing: constant Severity: moderate Similar Symptoms Previously: Yes Quality: sharp and aching Location: lumbar spine Radiation: left upper leg and neck Exacerbating factors: movement and walking Relieving factors: immobilization Context: other Associated symptoms: denies other symptoms Treatments prior to arrival: other medications Work related injury: No Related Data Home Medications ?Medication ?Instructions ?Recorded ?Confirmed sertraline 100 mg tablet 1 tab PO DAILY 01/31/22 08/10/22 meloxicam 15 mg tablet 15 mg PO DAILY 12/31/23 Previous Rx's ?Medication ?Instructions ?Recorded ofloxacin 0.3 % ear drops 10 drp otic (ears) DAILY 7 days 02/11/24 #10 mL diazepam 2 mg tablet (Valium) 2 mg PO BID PRN muscle pain #6 tabs 06/08/25 diazepam 5 mg tablet (Valium) 5 mg PO TID PRN muscle spasm #12 06/23/25 tabs nitrofurantoin 100 mg PO BID 3 days #6 caps 06/23/25 monohydrate/macrocrystals 100 mg capsule (Macrobid) prednisone 20 mg tablet 40 mg (2 x 20 mg) PO DAILY 4 days 06/23/25 #8 tabs Allergies Allergy/AdvReac Type Severity Reaction Status Date / Time No Known Allergies (No Known Allergy Verified 06/23/25 08:06 Allergies*) Review of Systems Review of Systems: Constitutional : No Weight loss, No Fever, No Chills, ENT/Mouth : No Hearing loss, No Ear Pain, No Nasal Congestion, No Sinus Pain, No Hoarseness, No sore throat, No Rhinorrhea, No Swallowing Difficulty Cardiovascular : No Chest Pain, No SOB Respiratory : No Cough, No Dyspnea Gastrointestinal : No Nausea, No Vomiting, No Diarrhea, No abdominal Pain, No Hematochezia, No Melena Genitourinary : No Dysuria, No Urinary Frequency, No Hematuria, No Urinary Incontinence, Musculoskeletal : positive back pain Skin : No Skin Lesions, No rash Neuro : No Weakness, No Numbness, No Paresthesias, no loss of bowel or bladder incontinence, no saddle anesthesia Yes all other systems are reviewed and are negative [facility] Past Medical History Attestation statement: The following information was validated with the patient. Source: old records reviewed Medical History Mood disorder HTN (hypertension) Ovarian cyst Surgical History History of partial hysterectomy Family History Family History Father Diverticulitis Social History Social History Household Members: Spouse and Children Do you presently have visiting nurse or other home services: No Alcohol intake: never Patient Tobacco Use Status: Never used Tobacco Advance Directives: No Advance Directives Information Provided: No service: No Current occupational status: employed Physical Exam Vital Signs: Vital Signs: Last Vital Signs Temp 96.2 F L 06/23/25 08:04 Pulse 60 06/23/25 08:04 Resp 16 06/23/25 08:04 BP 134/90 H 06/23/25 08:04 Pulse Ox 98 06/23/25 08:04 O2 Del Method Room Air 06/23/25 08:04 BMI result Body Mass Index 31.0 Appearance: Alert. Oriented X3. No acute distress. Eyes: Pupils equal, round and reactive to light. ENT: Pharynx normal. Neck: Normal inspection. Neck supple. CVS: Normal heart rate and rhythm. Pulses normal. Respiratory: No respiratory distress. Breath sounds normal. Abdomen: Soft and nontender. Back: ttp along L paraspinals and PSIS area Skin: Skin warm and dry. Normal skin color. Normal skin turgor. Extremities: No lower extremity edema. No calf ttp Neuro: Oriented X 3. No motor deficit. No sensory deficit. CN2-12 intact L5 5/5 bilaterally, SILT intact, 2+ DTR in patella area, 5/5 lower ext strength Medications Administered Discontinued Medications Generic Name Dose Route Start Last Admin Trade Name Raymondq PRN Reason Stop Dose Admin Diazepam 5 mg 06/23/25 08:31 06/23/25 08:37 Diazepam 5 Mg Tablet PO 06/23/25 08:32 5 mg ONCE ONE Administration Ketorolac Tromethamine 30 mg 06/23/25 08:31 06/23/25 08:36 Ketorolac Tromethamine 30 Mg/Ml Vial IM 06/23/25 08:32 30 mg ONCE ONE Administration Prednisone 40 mg 06/23/25 08:31 06/23/25 08:37 Prednisone 20 Mg Tablet PO 06/23/25 08:32 40 mg ONCE ONE Administration Medical Decision Making Medical Decision Making [facility] Narrative: 49 yo female with PMH of HTN, mood disorder here with c/o low back pain x 3 months but no red flags or signs of cauda equina seems more like strain from job - at this time will obtain UA and lumbar spine xray - start on steroids, valium and refer to spine center. Differential Diagnosis Differential Diagnoses: The differential diagnosis associated with the presentation includes lumbar strain, radiculopathy Admission/Observation Consideration of admission/observation: Escalation of care including admission/observation considered able to walk stable for DC Lab Data [facility] Lab Attestation statement: I reviewed the patient's lab results. Labs: Lab Results 06/23/25 Range/Units 08:33 Urine Color Yellow Urine Appearance Clear Urine pH 7.0 (5.0-9.0) Ur Specific Woodrow 1.015 (1.005-1.025) Urine Protein Negative (Neg-Trace) mg/dL Urine Glucose (UA) Negative (Negative) mg/dL Urine Ketones Negative (Negative) mg/dL Urine Blood Negative (Negative) Urine Nitrite Negative (Negative) Ur Leukocyte Esterase Small (1+) H (Negative) Urine RBC 0-2 (0-2) /HPF Urine WBC 11-20 H (0-5) /HPF Ur Squamous Epith Cells 11-20 (0-2) /HPF Urine Bacteria 1+ (None Seen) Hyaline Casts 0-2 (0-2) /LPF Urine Test NEGATIVE (NEGATIVE) Independent Interpretation I performed an independent interpretation of an: Plain X-Ray (no fx, loss of disc height on L2-L3 area but otherwise normal ) Radiology Impression Discussion of test interpretation with radiology: I have reviewed the radiologist's reading. Independent Historian Clinical information obtained from an independent historian. History obtained from or confirmed by: Spouse External Record Review External record reviewed: Outpatient record Prescription Management I considered prescription management with: Pain Medication and Other Discharge Plan Discharge Clinical Impression: Lumbar radiculopathy, Strain of lumbar region Patient Disposition: Home, Self-Care Instructions: Acute Low Back Pain (ED), Lumbar Radiculopathy (ED) Additional Instructions: return for numbness, weakness, loss of control of bowel or bladder, fevers or any other concerns. no lifting more than 20lbs for 2 weeks, avoid activities that cause pain follow up with PCP for physical therapy or contact our spine center you have some wbc and bacteria in your urine will start you on short course of macrobid x 3 days will call you with any abnormal result or concerning finding your xray Findings: Minimal convex left mid lumbar curvature with apex at L2-3. Alignment is anatomic on the lateral view. No fracture. Disc space heights are well preserved. Sacroiliac joints are unremarkable. Impression: 1. Minor spinal curvature may be related to patient positioning or muscle spasm. Otherwise, negative lumbar spine radiographs. Prescriptions: New prednisone 20 mg tablet 40 mg PO DAILY 4 Days Qty: 8 0RF diazepam [Valium] 5 mg tablet 5 mg PO TID PRN (Reason: muscle spasm) Qty: 12 0RF Rx Instructions: partial fill is okay nitrofurantoin monohyd/m-cryst [Macrobid] 100 mg capsule 100 mg PO BID 3 Days Qty: 6 0RF Rx Instructions: must administer with a meal/food No Action sertraline 100 mg tablet 1 tab PO DAILY ofloxacin 0.3 % drops 10 drp otic (ears) DAILY 7 Days Qty: 10 0RF meloxicam 15 mg tablet 15 mg PO DAILY diazepam [Valium] 2 mg tablet 2 mg PO BID PRN (Reason: muscle pain) Qty: 6 0RF Referrals: [facility] [Provider Group, Neurosurgery] Referral Note: call to schedule apppointment Stand Alone Forms: Work/School Release Print Language: Japanese
[2025-06-23 10:13] VITALS: BP 134/90; PULSE 60; RESP 16; TEMP 35.7; O2SAT 98
== END 2025-06-23 10:13 | disposition home or self-care (01) ==
PROVIDERS: Emergency Provider Emergency Medicine; PCP Family Medicine
DX: M54.16 Radiculopathy, lumbar region (principal); M54.2 Cervicalgia; I10 Essential (primary) hypertension; Z79.899 Other long term (current) drug therapy
CPT/HCPCS: 72100; 81001; 81025; 87086; 87088; 87186; 96372; 99284; J1885

== ENCOUNTER → 2025-06-23 08:31 | Outpatient (BNV) | payer OTHER, SELFPAY | PROVIDERS: Emergency Provider Emergency Medicine; PCP Family Medicine; Visit Provider Radiology Diagnostic Radiology | DX: M54.50 Low back pain, unspecified (principal) | CPT/HCPCS: 72100 ==